=== PATIENT | female | born 1985 | race Caucasian/White ===

== ENCOUNTER 2017-08-22 10:49 | Emergency (ER) | payer MEDICAID, SELFPAY ==
[2017-08-22 10:51] VITALS: BP 112/75; PULSE 68; RESP 16; TEMP 36.3; O2SAT 98; BMI 29.6
[2017-08-22] MEDS: Ketorolac 30 MG/ML Syringe IV (11:10)
[2017-08-22] MEDS: proCHLORPERazine 10 MG/2 ML Vial IV (11:10)
[2017-08-22] MEDS: 0.9% Normal Saline 1,000 ML 999 ML IV (11:10)
[2017-08-22] MEDS: DiphenhydrAMINE 50 MG/ML Syringe 25 MG IV (11:10)
--- NOTE | 2017-08-22 12:13 | ED.VISSUMM ---
- ER Visit Summary Date of Service: 08/22/17 Chief Complaint: Headache History of Present Illness: The patient is a 32 F with a history of migraines who takes Maxalt as needed at home who presents with a headache since yesterday. She states it began about noon and worsened over several hours and reached its worst point about 3 AM today. She does have a history of prior similar headaches although today's is more severe. She currently rates it as a 9 out of 10. It is typical in character location and associated symptoms as her previous migraines. She complains of an aching right temporal and retro-orbital headache. She does report nausea vomiting and photophobia all of which is typical with her previous migraines. She has had some mild congestion recently but otherwise no recent illness. She denies fevers. She denies any history of head injury. Physical Examination: Afebrile vitals are normal Patient does appear uncomfortable lights are off in the room Moist mucous membranes Pupils are equally round and reactive to light Neck supple no meningismus No focal or lateralizing neurological deficits normal strength and sensation Heart regular Lungs clear Test Results: Not indicated Emergency Department Course and Treatment: Was treated with IV fluids Toradol Compazine and Benadryl with resolution of symptoms and feels much better on reevaluation. She understands to return for new or worsening symptoms. She will otherwise follow-up as needed as an outpatient with her neurologist. She was discharged. Treatment Plan: [] Disposition: Discharge Impression: Migraine This note was generated with [employer] dictation software. It may contain incorrect words, spelling, and punctuation that were not noted in review of the chart prior to signing ED Disposition - Plan for ED Patient: Chief Complaint: Headache Referrals: Care Physician,No Primary [Primary Care Provider] -
--- NOTE | 2017-08-22 12:16 | ED.DEP ---
ED Disposition - Plan for ED Patient: Chief Complaint: Headache Instructions: ED Headache Migraine Referrals: Care Physician,No Primary [Primary Care Provider] -
[2017-08-22 12:20] VITALS: BP 108/77; PULSE 62; RESP 15; O2SAT 98
== END 2017-08-22 12:21 | disposition home or self-care (01) ==
LOC: ED 11:50
PROVIDERS: Emergency Provider Emergency Medicine
DX: G43.909 Migraine, unspecified, not intractable, without status migrainosus (principal); I34.1 Nonrheumatic mitral (valve) prolapse; F41.9 Anxiety disorder, unspecified; Z79.899 Other long term (current) drug therapy
CPT/HCPCS: 96361; 96374; 96375; 99283; J7030; A4216

== ENCOUNTER 2018-07-11 19:38 | Emergency (ER) | payer MEDICAID, SELFPAY ==
[2018-07-11 19:39] VITALS: BP 107/65; PULSE 124; RESP 18; TEMP 36.5; O2SAT 97; BMI 31.5
--- NOTE | 2018-07-11 20:19 | ED.VISSUMM ---
- ER Visit Summary Date of Service: 07/11/18 Chief Complaint: Body aches and headache with sore throat History of Present Illness: The patient is a 33 F diagnosed with strep throat early this morning at [facility]. Started on amoxicillin twice daily. Has already started antibiotic. Denies any significant cough. States she also has a headache and the lymph nodes in her neck are swollen. She denies vomiting or diarrhea. No sneezing cough. She has had a fever. Physical Examination: Well-appearing young female. Vital signs are stable. Currently she is afebrile. Blood pressure 107/65. She does not look septic or toxic. She does not look dehydrated. H EENT exam TMs normal. Posterior pharynx erythema with small exudate. No peritonsillar abscess. Tonsils are slightly enlarged and red but not touching. No stridor or drooling. Able to swallow. Neck anterior and posterior lymphadenopathy is tender. No meningismus. She is able to touch her chin to chest. Lungs clear to auscultation bilaterally. Heart regular rhythm no murmur. Tachycardic. Abdomen soft and nontender. Normal bowel sounds no peritoneal signs. Extremities moves all 4. Calves nontender. No edema. Back nontender. Skin no rashes. No petechiae or purpura. Neurologically she is awake alert with no focal motor or sensory deficits. 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 Dorsi plantar flexion intact. Fingertip to nose within normal limits bilaterally. Test Results: None Emergency Department Course and Treatment: Motrin p.o. to go. Patient to start her antibiotic explained to her to take several days if she starts feeling better. Treatment Plan: Continue the amoxicillin. Tylenol Motrin for fever. Plenty of fluids and rest. Disposition: Discharge Impression: Acute strep throat with body aches, cervical lymphadenopathy and headache This note was generated with [employer] dictation software. It may contain incorrect words, spelling, and punctuation that were not noted in review of the chart prior to signing ED Disposition - Plan for ED Patient: Referrals: Care Physician,No Primary [Primary Care Provider] -
--- NOTE | 2018-07-11 20:22 | ED.DCSUM_ITS ---
- ER Visit Summary Date of Service: 07/11/18 Chief Complaint: Body aches and headache with sore throat History of Present Illness: The patient is a 33 F diagnosed with strep throat early this morning at [facility]. Started on amoxicillin twice daily. Has already started antibiotic. Denies any significant cough. States she also has a headache and the lymph nodes in her neck are swollen. She denies vomiting or diarrhea. No sneezing cough. She has had a fever. Physical Examination: Well-appearing young female. Vital signs are stable. Currently she is afebrile. Blood pressure 107/65. She does not look septic or toxic. She does not look dehydrated. H EENT exam TMs normal. Posterior pharynx erythema with small exudate. No peritonsillar abscess. Tonsils are slightly enlarged and red but not touching. No stridor or drooling. Able to swallow. Neck anterior and posterior lymphadenopathy is tender. No meningismus. She is able to touch her chin to chest. Lungs clear to auscultation bilaterally. Heart regular rhythm no murmur. Tachycardic. Abdomen soft and nontender. Normal bowel sounds no peritoneal signs. Extremities moves all 4. Calves nontender. No edema. Back nontender. Skin no rashes. No petechiae or purpura. Neurologically she is awake alert with no focal motor or sensory deficits. 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 Dorsi plantar flexion intact. Fingertip to nose within normal limits bilaterally. Test Results: None Emergency Department Course and Treatment: Motrin p.o. to go. Patient to start her antibiotic explained to her to take several days if she starts feeling better. Treatment Plan: Continue the amoxicillin. Tylenol Motrin for fever. Plenty of fluids and rest. Disposition: Discharge Impression: Acute strep throat with body aches, cervical lymphadenopathy and headache This note was generated with [employer] dictation software. It may contain incorrect words, spelling, and punctuation that were not noted in review of the chart prior to signing ED Disposition - Plan for ED Patient: Referrals: Care Physician,No Primary [Primary Care Provider] -
--- NOTE | 2018-07-11 20:22 | ED.DEP ---
ED Disposition - Plan for ED Patient: Disposition: Home or Assisted Living Instructions: ED Strep Pharyngitis Conf Referrals: Glen Jimenez MD [STAFF PHYSICIAN] - 3-5 Days if not improving Additional Instructions: Plenty of fluids and rest so you do not get dehydrated. Alternate Tylenol Motrin for body aches and fever. Continue your current antibiotic. Follow-up with a primary care physician if not improving.
[2018-07-11] MEDS: Ibuprofen 600 MG Tablet PO (20:36)
[2018-07-11 20:40] VITALS: RESP 16
== END 2018-07-11 20:41 | disposition home or self-care (01) ==
LOC: ED 20:30
PROVIDERS: Emergency Provider Emergency Medicine
DX: J02.0 Streptococcal pharyngitis (principal); R59.0 Localized enlarged lymph nodes; R51 Headache; M79.10 Myalgia, unspecified site; Z79.2 Long term (current) use of antibiotics; Z79.899 Other long term (current) drug therapy
CPT/HCPCS: 99283

== ENCOUNTER 2018-08-19 21:29 | Emergency (ER) | payer MEDICAID, SELFPAY ==
[2018-08-19 21:30] VITALS: BP 108/62; PULSE 102; RESP 18; TEMP 36.7; O2SAT 100; BMI 30.2
--- NOTE | 2018-08-19 21:43 | ED.VISSUMM ---
- ER Visit Summary Date of Service: 08/19/18 Chief Complaint: Dizziness History of Present Illness: The patient is a 33 F presents to the emergency department dizziness. The patient does have a history of vertigo. States of the past week, she had dizziness that she describes a sensation of motion. She states if she turns her head or leans quickly, she will get dizziness. She was on meclizine before, but has since run out. She is also had some pressure in her right ear. She denies any fevers or chills. She is been nauseated without vomiting. She denies any trouble speech, change in balance, change in gait. Physical Examination: Vital signs reviewed General: Well-nourished, well-developed Head: Normocephalic, atraumatic Eyes: Pupils equal and reactive, extraocular muscles intact Neck, supple, no lymphadenopathy Heart: Regular rate and rhythm Respiratory: No distress, clear bilaterally Abdomen: Soft, nontender, nondistended, no peritoneal signs Back: Nontender Extremities: Nontender, no edema, no cords Skin: Normal color no rash Neuro: Alert and oriented, no focal or lateralizing deficits Test Results: [] Emergency Department Course and Treatment: The patient does have some bulging of her right TM, but there is no erythema. There is no mastoid tenderness. Her neck is supple. She has no other brainstem symptoms. She does have a positive HI NTS exam. I do feel that this is all positional vertigo. I am going to treat her with meclizine and Zofran. She is comfortable with this plan of care and will be discharged home. Treatment Plan: [] Disposition: There is Impression: Urge 1. Positional vertigo This note was generated with [employer] dictation software. It may contain incorrect words, spelling, and punctuation that were not noted in review of the chart prior to signing ED Disposition - Plan for ED Patient: Instructions: ED BPV Vertigo Prescriptions: Ondansetron [Zofran Odt] 4 mg PO Q8H PRN PRN #10 tab PRN Reason: Nausea Meclizine HCl 25 mg PO 4X/DAY PRN PRN #30 tab PRN Reason: Vertigo Referrals: Care Physician,No Primary [Primary Care Provider] -
[2018-08-19] MEDS: Ondansetron ODT 4 MG Tablet PO (21:50)
[2018-08-19] MEDS: Meclizine HCl 25 MG Tablet PO (21:50)
[2018-08-19 21:54] VITALS: RESP 16
== END 2018-08-19 21:56 | disposition home or self-care (01) ==
LOC: ED 21:47
PROVIDERS: Emergency Provider Emergency Medicine
DX: H81.10 Benign paroxysmal vertigo, unspecified ear (principal)
CPT/HCPCS: 99283

== ENCOUNTER 2018-10-09 10:53 | Emergency (ER) | payer MEDICAID, SELFPAY ==
[2018-10-09 10:54] VITALS: BP 113/66; PULSE 95; RESP 16; TEMP 36.9; O2SAT 100; BMI 28.6
--- NOTE | 2018-10-09 11:12 | RAD_ITS ---
STUDY: X-RAY CHEST REASON FOR EXAM: Female, 33 years old. Fever TECHNIQUE: PA and lateral views of the chest. COMPARISON: 05/23/2015 FINDINGS: The lungs are clear and expanded. There is no demonstrated pleural abnormality. Normal size heart. Normal mediastinum and elvin. Normal visualized pulmonary arteries. Normal visualized aortic arch and descending thoracic aorta. Normal visualized thoracic spine. Normal visualized ribs, clavicles, and shoulders. There is no demonstrated abnormality of the visualized soft tissue structures of the upper abdomen. RAD/Chest PA and Lateral IMPRESSION: Stable, nonacute x-ray examination of the chest. Electronically Signed: Oscar Webb MD at 12:03 EDT , Service support ,
--- NOTE | 2018-10-09 11:24 | ED.VISSUMM ---
- ER Visit Summary Date of Service: 10/09/18 Chief Complaint: Headache, fever, and body ache History of Present Illness: The patient is a 33 F who presents with a headache and fever that began yesterday. Patient states her fever was up to 103.2 at home. Patient admits to some sweats with this. Patient also admits to a headache. Patient states the headache is similar to prior migraine headaches. Patient admits to some photophobia. Patient states her headache is also worse with moving. Patient states her headache improves when she lays flat and still. Patient describes her pain as throbbing and there is generalized. Patient also admits to some myalgias. Patient denies any chest pain or shortness of breath. Patient does admit to a slight cough. Physical Examination: Vital signs are stable. Patient is afebrile. Patient is in no acute distress. Oral mucosa is pink and moist. Neck is supple. Trachea is midline. There is no JVD noted. Heart was regular rate and rhythm. Lungs are clear and equal bilateral. Abdomen is soft. Bowel sounds are normal. There is no tenderness. There is no guarding noted. Skin is warm dry. Cranial nerves II through XII are intact. There are no focal motor or sensory deficits noted. The remaining physical exam is within normal limits. Test Results: PA and lateral chest x-ray was obtained. There is no acute cardiopulmonary process. CBC shows white blood cell count 2.5, hemoglobin of 11.1, and hematocrit 34.1. Sodium was 135. The remaining labs are within normal limits. Emergency Department Course and Treatment: Patient was given IV fluids, Reglan, Benadryl, and Toradol. Patient was feeling better on reevaluation. Patient states her headache has resolved. Patient was instructed to rest in a dark quiet room. Patient was instructed to follow-up with her primary care physician in 5 to 7 days. Patient understood and was agreeable with the plan. All questions were answered. Disposition: Discharge home Impression: 1. Migraine headache 2. Viral illness This note was generated with [employer]ation software. It may contain incorrect words, spelling, and punctuation that were not noted in review of the chart prior to signing ED Disposition - Plan for ED Patient: Disposition: Home or Assisted Living Diagnosis: Migraine headache, Viral illness Instructions: ED Headache Migraine, ED Viral Syndrome Referrals: Care Physician,No Primary [Primary Care Provider] -
[2018-10-09 11:27] LABS: Absolute Lymphocyte Count 0.86 X10^3/ul (0.83-4.51); Absolute Neutrophil Count 1.2 X10^3/uL (2.0-7.7); Basophil# 0.04 X10^3/uL; Basophil% 1.6 % (0-1); Eosinophil# 0.04 X10^3/uL; Eosinophils% 1.6 % (0-5); Hematocrit 34.1 % (37-47); Hemoglobin 11.1 g/dl (12.0-15.0); Lymphocyte # 0.86 X10^3/ul (4.0); Lymphocyte % 34.4 % (19-41); Mean Corp Hgb Conc 32.6 g/gl (32-36); Mean Corpuscular Hgb 23.3 pg (27.0-32.0); Mean Corpuscular Volume 71.6 fL (81-99); Mean Platelet Vol. 8.5 fl (6.2-12.0); Monocyte# 0.37 X10^3/uL; Monocyte% 14.8 % (0-10); Neutrophil # 1.18 X10^3/uL (2.7-7.7); Neutrophil % 47.2 % (47-70); Platelet Count 324 K/mm3 (150-450); RBC Distribution Width CV 15.2 % (11.6-14.6); Red Blood Count 4.76 M/mm3 (4.2-5.4); White Blood Count 2.5 K/mm3 (4.4-11.0)
[2018-10-09 11:28] LABS: POSITIVE COUNT NO; POSITIVE DIFFERENTIAL NO; POSITIVE MORPHOLOGY NO
[2018-10-09] MEDS: DiphenhydrAMINE 50 MG/ML Syringe 25 MG IV (11:29)
[2018-10-09] MEDS: proCHLORPERazine 10 MG/2 ML Vial IV (11:29)
[2018-10-09] MEDS: Ketorolac 30 MG/ML Syringe IV (11:29)
[2018-10-09] MEDS: 0.9% Normal Saline 1,000 ML 999 ML IV (11:30)
[2018-10-09 11:38] LABS: Anion Gap 5 (5-15); BUN 11 mg/dL (7-18); Calcium,Total 8.7 mg/dL (8.5-10.1); Chloride 105 mmol/L (98-107); Creatinine, Serum 0.92 mg/dL (0.55-1.02); EST Glomerular Filtration Rate 76 mL/min (>60); Est Glom Filt Rate - Afr Amer 92 mL/min (>60); Estimated Creatinine Clearance 86.16 ml/min; Glucose 89 mg/dL (74-106); Sodium Level 135 mmol/L (136-145)
[2018-10-09 12:55] VITALS: RESP 18
== END 2018-10-09 12:55 | disposition home or self-care (01) ==
PROVIDERS: Emergency Provider Emergency Medicine
DX: G43.909 Migraine, unspecified, not intractable, without status migrainosus (principal); B34.9 Viral infection, unspecified
CPT/HCPCS: 71046; 80048; 85025; 96361; 96374; 96375; 99283; J7030; A4216

== ENCOUNTER 2019-05-14 20:28 | Emergency (ER) | payer MEDICAID, SELFPAY ==
[2019-05-14 20:28] VITALS: BP 103/61; PULSE 114; RESP 18; TEMP 39.4; O2SAT 99; BMI 31.9
[2019-05-14 20:48] VITALS: BP 103/61; PULSE 114; RESP 16; RESP 18; TEMP 39.4; O2SAT 99
--- NOTE | 2019-05-14 20:54 | ED.DCSUM_ITS ---
History of Present Illness Chief Complaint: Cold Sx Detail of Chief Complaint: Cough, sore throat, congestion, fever Informant: Patient Onset: Yesterday Timing: Waxes and wanes Current Severity: Moderate Maximum Severity: Moderate Narrative: Patient states she woke early yesterday morning with congestion, fever, sore throat, cough. She is bringing up yellow sputum. Temperature here is 103. She last took ibuprofen 4 hours ago. She is a history of migraines and states that because of her cough she has now developed a migraine as well. She did not get the flu shot this year. - Past Medical History (1) Anxiety Status: Chronic (2) Mitral valve prolapse Status: Chronic (3) Palpitations Status: Chronic Past Medical History - Allergies and Home Meds Allergies/Adverse Reactions: Allergies pseudoephedrine Adverse Reaction (Verified 05/14/19 20:31) Other HIGH HEART RATE. BABY OIL Adverse Reaction (Uncoded 10/09/18 10:54) Rash Primary Care Physician: Eliot Smith NP-C [Primary Care Provider] - Prior records reviewed: Yes Lives: With Family Smoking Status: Never smoker Review of Systems General: Reports: Fever Eyes: Denies: Visual changes - bilaterally ENT: Reports: Sore throat, - - Head congestion Cardiovascular: Denies: Chest pain Respiratory: Reports: Cough, Sputum Gastrointestinal: Reports: Nausea. Denies: Vomiting Genitourinary: Denies: Dysuria Musculoskeletal: Denies: Neck pain, Extremity Pain Skin: Denies: Rash Neurological: Reports: Headache Allergy: Denies: Uticaria Physical Exam Vital Signs/Narrative: Vital Signs Temp Pulse Resp BP Pulse Ox 05/14/19 20:48 103 F H 114 H 18 103/61 99 05/14/19 20:28 103 F H 114 H 18 103/61 99 Inital Vital Signs reviewed: Yes General: Well nourished, Well developed Head: Normocephalic Eyes: Perrl, EOMI ENT: Moist mucous membranes, TM's clear, - - 2+ tonsils. Posterior pharyngeal drainage. Uvula midline. Patient tolerating secretions well. Neck: Supple, - - Bilateral anterior cervical lymphadenopathy. Cardiovascular: Tachycardia Respiratory: No distress, CTA bilaterally Abdomen: Soft, Nontender Extremities: Nontender, No edema Skin: Normal color Neurological: Alert, Oriented x3 Psychological: Normal affect Diagnostic/Tx/Re-eval Impressions Chest X-Ray 05/14/19 21:15 IMPRESSION: Normal x-ray examination of the chest. Electronically Signed: Elena Haddad MD at 22:00 EST Tel , Service support , 05/14/19 21:15 Chest PA and Lateral [RAD] Stat 05/14/19 21:30 Mucosa - Nasopharyngeal Influenza Types A,B Direct FA (KEN) - Final Influenzae B Laboratory Results 05/14/19 05/14/19 05/14/19 21:00 21:00 21:00 WBC 5.6 RBC 4.42 Hgb 11.3 L Hct 35.7 L MCV 80.8 L MCH 25.6 L MCHC 31.7 L RDW Std Deviation 42.0 RDW Coeff of Ana 14.2 Plt Count 334 MPV 8.1 Immature Gran % (Auto) 0.400 Neut % (Auto) 69.2 Lymph % (Auto) 18.2 L Mills % (Auto) 11.5 H Eos % (Auto) 0.2 Baso % (Auto) 0.5 Absolute Neuts (auto) 3.8 Absolute Lymphs (auto) 1.01 Nucleated RBC % 0 Sodium 138 Potassium 3.8 Chloride 107 Carbon Dioxide 26.0 Anion Gap 5 BUN 11 Creatinine 0.89 Estim Creat Clear Calc 85.74 Est GFR (MDRD) Af Amer 94 Est GFR (MDRD) Non-Af 78 BUN/Creatinine Ratio 12.3 Glucose 113 H Calcium 8.5 Serum , Qual NEGATIVE - Medical Decision Making Patient was given Toradol, Reglan, Benadryl, and IV fluids. On repeat evaluation she is feeling improved. She states her headache is improving but still present. I did advise her that her chest x-ray is clear however her flu test is positive for influenza B. Repeat temperature is currently 99.3. I did discuss the use of Tamiflu with her and gave her the pros and cons. She would like the medication. She will be given first dose here and prescription will be sent to the pharmacy for her. ED Disposition - Plan for ED Patient: Disposition: Home or Assisted Living Diagnosis: Influenza Instructions: INFLUENZA (Adult) Prescriptions: Oseltamivir Phosphate [Tamiflu] 75 mg PO BID #10 cap [facility]: [facility] Referrals: Eliot Smith, RICH-C [Primary Care Provider] - 1 Week
[2019-05-14] MEDS: 0.9% Normal Saline 1,000 ML 1000 ML IV (20:58)
[2019-05-14] MEDS: Acetaminophen 500 MG Tablet 1000 MG PO (20:58)
[2019-05-14] MEDS: Metoclopramide 10 MG/2 ML Vial IV (21:00)
[2019-05-14] MEDS: DiphenhydrAMINE 50 MG/ML Syringe 25 MG IV (21:00)
[2019-05-14] MEDS: Ketorolac 30 MG/ML Syringe IV (21:01)
[2019-05-14 21:06] LABS: Absolute Lymphocyte Count 1.01 X10^3/uL (0.83-4.51); Absolute Neutrophil Count 3.8 X10^3/uL (2.0-7.7); Basophil# 0.03 X10^3/uL; Basophil% 0.5 % (0-1); Eosinophil# 0.01 X10^3/uL; Eosinophils% 0.2 % (0-5); Hematocrit 35.7 % (37-47); Hemoglobin 11.3 g/dL (12.0-15.0); Lymphocyte # 1.01 X10^3/ul (4.0); Lymphocyte % 18.2 % (19-41); Mean Corp Hgb Conc 31.7 g/dL (32-36); Mean Corpuscular Hgb 25.6 pg (27.0-32.0); Mean Corpuscular Volume 80.8 fL (81-99); Mean Platelet Vol. 8.1 fl (6.2-12.0); Monocyte# 0.64 X10^3/uL; Monocyte% 11.5 % (0-10); NRBC Flagged by Analyzer 0 % (0-5); Neutrophil # 3.84 X10^3/uL (2.7-7.7); Neutrophil % 69.2 % (47-70); Platelet Count 334 K/mm3 (150-450); RBC Distribution Width CV 14.2 % (11.6-14.6); Red Blood Count 4.42 M/mm3 (4.2-5.4); White Blood Count 5.6 K/mm3 (4.4-11.0)
--- NOTE | 2019-05-14 21:15 | RAD_ITS ---
STUDY: X-RAY CHEST REASON FOR EXAM: Female, 33 years old. Cough with fever TECHNIQUE: PA and lateral chest. COMPARISON: 10/09/2018. FINDINGS: The lungs are clear and expanded. There is no demonstrated pleural abnormality. Normal size heart. Normal mediastinum and elvin. Normal visualized pulmonary arteries. Normal visualized aortic arch and descending thoracic aorta. Normal visualized thoracic spine. Normal visualized ribs, clavicles, and shoulders. There is no demonstrated abnormality of the visualized soft tissue structures of the upper abdomen. RAD/Chest PA and Lateral IMPRESSION: Normal x-ray examination of the chest. Electronically Signed: Elena Haddad MD at 22:00 EST Tel , Service support ,
[2019-05-14 21:20] LABS: Anion Gap 5 (5-15); BUN 11 mg/dL (7-18); BUN/Creat Ratio 12.3 RATIO (10-20); Calcium,Total 8.5 mg/dL (8.5-10.1); Chloride 107 mmol/L (98-107); Creatinine, Serum 0.89 mg/dL (0.55-1.02); EST Glomerular Filtration Rate 78 mL/min (>60); Est Glom Filt Rate - Afr Amer 94 mL/min (>60); Estimated Creatinine Clearance 85.74 ml/min; Glucose 113 mg/dL (74-106); Potassium 3.8 mmol/L (3.5-5.1); Sodium Level 138 mmol/L (136-145)
[2019-05-14 21:24] LABS: Internal QC Validated? YES +Cl - CLEAR BKGD; Pregnancy, Serum, hCG Quali. NEGATIVE Negative
[2019-05-14] MEDS: Oseltamivir Phosphate 75 MG Capsule PO (22:20)
== END 2019-05-14 22:25 | disposition home or self-care (01) ==
PROVIDERS: Emergency Provider Emergency Medicine; Family Provider Nurse Practitioner Primary Care; PCP Nurse Practitioner Primary Care
DX: J10.1 Influenza due to other identified influenza virus with other respiratory manifestations (principal); G43.909 Migraine, unspecified, not intractable, without status migrainosus; R00.2 Palpitations; I34.1 Nonrheumatic mitral (valve) prolapse; Z79.899 Other long term (current) drug therapy
CPT/HCPCS: 71046; 80048; 84703; 85025; 87804; 96361; 96374; 96375; 99284; J7030; A4216

== ENCOUNTER 2019-11-23 16:48 | Emergency (ER) | payer MEDICAID, SELFPAY ==
[2019-11-23 16:49] VITALS: BP 125/82; PULSE 93; RESP 22; TEMP 36.2; BMI 31.2
--- NOTE | 2019-11-23 17:08 | ED.DCSUM_ITS ---
History of Present Illness Chief Complaint: Headache Informant: Patient Onset: Today Current Severity: Severe Maximum Severity: Severe Narrative: Patient present secondary to headache. She is a history of migraines and states she gets her migraines nearly daily. Today she woke at 11:00 this morning with a headache. It is across both temples and behind her eyes. She states this is the typical location of her migraines but it is more severe than normal. She was seen at [facility]. She states she was given a shot of morphine and a tab of Valium thinking that she had a tension headache and discharged. She reported no improvement. She does follow with a neurologist as well as a chiropractor to try to keep her headaches under control. - Past Medical History (1) Migraines Status: Chronic (2) Anxiety Status: Chronic (3) Mitral valve prolapse Status: Chronic Past Medical History - Allergies and Home Meds Allergies/Adverse Reactions: Allergies pseudoephedrine Adverse Reaction (Verified 05/14/19 20:31) Other HIGH HEART RATE. BABY OIL Adverse Reaction (Uncoded 10/09/18 10:54) Rash Primary Care Physician: Eliot Smith NP-C [Primary Care Provider] - Prior records reviewed: Yes Smoking Status: Never smoker Review of Systems General: Denies: Chills Eyes: Reports: - - Light sensitivity. Denies: Visual changes - left, Visual changes - right ENT: Denies: Bilateral ear pain, Sore throat Cardiovascular: Denies: Chest pain Respiratory: Denies: Dyspnea, Cough Gastrointestinal: Reports: Nausea, Vomiting. Denies: Abdominal pain Musculoskeletal: Denies: Extremity Pain Skin: Denies: Rash Neurological: Reports: Headache. Denies: Weakness, Parasthesia Hematologic: Denies: Easy bruising, Easy bleeding Allergy: Denies: Uticaria Physical Exam Vital Signs/Narrative: Vital Signs Temp Pulse Resp BP 11/23/19 16:49 97.1 F L 93 22 H 125/82 H Inital Vital Signs reviewed: Yes General: Well nourished, Well developed Head: Normocephalic ENT: Moist mucous membranes Neck: Supple Cardiovascular: Regular rate, Regular rhythm Respiratory: No distress, CTA bilaterally Abdomen: Soft, Nontender Skin: Normal color Neurological: Alert, Oriented x3, - - No focal deficits Psychological: Normal affect Diagnostic/Tx/Re-eval Impressions Brain CT 11/23/19 17:08 IMPRESSION: Normal unenhanced CT scan of the brain. Electronically Signed: Elilot Rubin MD at 18:04 EDT , Service support , 11/23/19 17:08 Brain/Head without Contrast [CT] Stat - Medical Decision Making Patient was given Toradol, Reglan, Benadryl, and a liter of IV fluids. On rep eat evaluation she reports feeling significantly improved. She has an appointment with her neurologist in 10 days. She will be given prescriptions for tablets of Toradol, Reglan, and Benadryl that she can use if she gets a bad headache before then. She was encouraged to discuss this with her neurologist at follow-up. ED Disposition - Plan for ED Patient: Disposition: Home or Assisted Living Diagnosis: Migraine Instructions: ED, Migraine (Classical) Prescriptions: DiphenhydrAMINE [Benadryl] 50 mg PO TID PRN PRN #20 cap PRN Reason: Migraine Symptoms Transmission Status: Pending to [facility] Metoclopramide [Reglan] 10 mg PO TID PRN #20 tab PRN Reason: Migraine Symptoms Transmission Status: Pending to [facility] Ketorolac [Toradol] 10 mg PO TID PRN PRN #10 tab PRN Reason: Migraine Symptoms Transmission Status: Pending to [facility] Referrals: Eliot Smith NP-C [Primary Care Provider] - Additional Instructions: FOllow-up with your neurologist next week as scheduled.
--- NOTE | 2019-11-23 17:08 | CT_ITS ---
STUDY: CT BRAIN WITHOUT CONTRAST REASON FOR EXAM: Female, 34 years old. BELLAMY AND VOMITING. DIAGNOSED WITH TENSION BELLAMY TODAY RADIATION DOSAGE (If Supplied By Facility): CTDIvol = ( 44.99 ) mGy, DLP = ( 765.18 ) mGycm TECHNIQUE: Transaxial CT imaging of the brain was performed without administration of intravenous contrast material. Individualized dose optimization techniques were used for this CT. COMPARISON: No relevant priors. FINDINGS: Normal soft tissue structures. Normal calvarium. Normal size ventricles and extra-axial spaces for the patient''s age. Normal white matter tracts of the cerebral hemispheres. Normal basal ganglia and thalami. Normal brainstem. Normal cerebellum. There is no intracranial hemorrhage. There are no findings of an acute ischemic infarction. Normal visualized paranasal sinuses. CT/Brain/Head without Contrast IMPRESSION: Normal unenhanced CT scan of the brain. Electronically Signed: Elliot Rubin MD at 18:04 EDT , Service support ,
[2019-11-23] MEDS: Metoclopramide 10 MG/2 ML Vial IV (17:18)
[2019-11-23] MEDS: Ketorolac 30 MG/ML Syringe IV (17:18)
[2019-11-23] MEDS: 0.9% Normal Saline 1,000 ML 999 ML IV (17:18)
[2019-11-23] MEDS: DiphenhydrAMINE 50 MG/ML Syringe 25 MG IV (17:18)
[2019-11-23 18:57] VITALS: BP 124/78; PULSE 74; RESP 14; O2SAT 99
[2019-11-23 19:08] VITALS: BP 102/59; PULSE 77; RESP 15; O2SAT 100
== END 2019-11-23 19:09 | disposition home or self-care (01) ==
PROVIDERS: Emergency Provider Emergency Medicine; PCP Nurse Practitioner Primary Care
DX: G43.909 Migraine, unspecified, not intractable, without status migrainosus (principal); I34.1 Nonrheumatic mitral (valve) prolapse; F41.9 Anxiety disorder, unspecified; Z79.899 Other long term (current) drug therapy
CPT/HCPCS: 70450; 96361; 96374; 96375; 99283; J7030

== ENCOUNTER 2019-12-18 11:11 | Emergency (ER) | payer MEDICAID, SELFPAY ==
[2019-12-18 11:13] VITALS: BP 116/75; PULSE 98; RESP 17; TEMP 36.5; O2SAT 98; BMI 31.7
[2019-12-18] MEDS: proCHLORPERazine 10 MG/2 ML Vial IV (11:29)
[2019-12-18] MEDS: 0.9% Normal Saline 1,000 ML 999 ML IV (11:29)
[2019-12-18] MEDS: DiphenhydrAMINE 50 MG/ML Syringe IV (11:29)
[2019-12-18] MEDS: Ketorolac 30 MG/ML Syringe IV (11:29)
--- NOTE | 2019-12-18 11:32 | ED.DCSUM_ITS ---
History of Present Illness Informant: Patient Onset: Yesterday Context: Gradual Onset Timing: Continuous Quality: Sharp Location: Head Current Severity: Severe Maximum Severity: Severe Worsened by: Nothing Relieved by: Nothing Associated Symptoms: Photophobia and nausea Narrative: 34-year-old female history of migraine headaches presents with a migraine headache. It started last night. She is on Maxalt. This did not improve her headache. It is consistent with her previous migraine headaches. It is sharp pain in her forehead and her right jehovah's witness. It has gradually worsened. It is not the worst headache of her life. She has no neck pain. She does not feel l ightheaded or dizzy. She does complain of photophobia and nausea. No vomiting. No visual changes blurry or double vision. No loss of speech or difficulty with speech. No difficulty with ambulation. No fevers. No head trauma. Denies any weakness or paresthesias. Prior similar symptoms: Yes Recent Illness/Hospitalization: No <Jimmy Pineda - Last Filed: 12/18/19 12:17> <Isaac Bettencourt - Last Filed: 12/18/19 12:44> Chief Complaint: Headache Past Medical History Prior records reviewed: Yes Past Medical History: - - Migraine headaches Surgical History: no surgical history Lives: With Family Smoking Status: Never smoker Alcohol: Occasional Drugs: None <Jimmy Pineda - Last Filed: 12/18/19 12:17> <Isaac Bettencourt - Last Filed: 12/18/19 12:44> - Allergies and Home Meds Allergies/Adverse Reactions: Allergies pseudoephedrine Adverse Reaction (Verified 12/18/19 11:13) Other HIGH HEART RATE. BABY OIL Adverse Reaction (Uncoded 12/18/19 11:13) Rash Primary Care Physician: Eliot Smith NP-C [Primary Care Provider] - Review of Systems All systems negative except as indicated General: Denies: Chills, Fever, Sweats Eyes: Denies: Visual changes - bilaterally, Diplopia ENT: Denies: Rhinorrhea, Sore throat Cardiovascular: Denies: Chest pain, Palpitations Respiratory: Denies: Dyspnea, Cough, Dyspnea on exertion Gastrointestinal: Reports: Nausea. Denies: Abdominal pain, Vomiting, Diarrhea, Melena, Hematochezia Genitourinary: Denies: Dysuria, Hematuria, Frequency Musculoskeletal: Denies: Back pain, Extremity Pain Skin: Denies: Rash, Wounds Neurological: Reports: Headache. Denies: Weakness, Parasthesia, Numbness <Jimmy Pineda - Last Filed: 12/18/19 12:17> Physical Exam Vital Signs/Narrative: Vital Signs Temp Pulse Resp BP Pulse Ox 12/18/19 11:13 97.7 F L 98 17 116/75 98 Inital Vital Signs reviewed: Yes General: Well nourished, Well developed, No Acute Distress Head: Normocephalic, Atraumatic Eyes: Perrl, EOMI ENT: Moist mucous membranes, No rhinorrhea Neck: Supple, Nontender, - - There is no meningismus noted Cardiovascular: Regular rate, Regular rhythm, No murmurs Respiratory: No distress, CTA bilaterally, Chest nontender Abdomen: Soft, Nontender, Nondistended, Normal bowel sounds Back: Nontender, Normal Inspection Extremities: Nontender, No edema Skin: Normal color, No rash Neurological: Alert, Oriented x3, Cranial nerves II-XII grossly intact, Normal Strength, Normal Sensation, Normal Gait Psychological: Normal affect, Normal Mood <Jimmy Pineda - Last Filed: 12/18/19 12:17> Vital Signs/Narrative: Vital Signs Temp Pulse Resp BP Pulse Ox 12/18/19 12:33 87 115/72 12/18/19 11:13 97.7 F L 98 17 116/75 98 <Isaac Bettencourt - Last Filed: 12/18/19 12:44> Diagnostic/Tx/Re-eval - Medical Decision Making On exam patient had normal stable vital signs with a nonfocal neurological exam. Headache is consistent with previous migraines. She was given IV fluids, Toradol, Compazine and Benadryl. On repeat evaluation she feels much improved. She is tolerating by mouth. Patient will be discharged home. Advised to with her primary care physician. Return precautions given. <Jimmy Pineda - Last Filed: 12/18/19 12:17> - Medical Decision Making Attending Note: I evaluated this patient with the midlevel provider. I performed my own face to face evaluation and agree with the above noted history and physical. I agree with the plan of care and the disposition. Patient presented with a migraine headache. She has a reassuring physical exam as noted above. She had improvement with a headache cocktail and was discharged. <Isaac Bettencourt - Last Filed: 12/18/19 12:44> ED Disposition <Jimmy Pineda - Last Filed: 12/18/19 12:17> <Isaac Bettencourt - Last Filed: 12/18/19 12:44> - Plan for ED Patient: Disposition: Home or Assisted Living Diagnosis: Migraine headache Instructions: ED, Migraine (Classical) Referrals: Eliot Smith NP-C [Primary Care Provider] -
[2019-12-18 12:33] VITALS: BP 115/72; PULSE 87
== END 2019-12-18 12:34 | disposition home or self-care (01) ==
PROVIDERS: Emergency Provider Physician Assistant Medical; PCP Nurse Practitioner Primary Care
DX: G43.909 Migraine, unspecified, not intractable, without status migrainosus (principal)
CPT/HCPCS: 96361; 96374; 96375; 99283; J7030; A4216

== ENCOUNTER 2020-02-14 05:44 | Emergency (ER) | payer MEDICAID, SELFPAY ==
[2020-02-14 05:45] VITALS: BP 123/78; PULSE 74; RESP 16; TEMP 36.1; O2SAT 100; BMI 33.0
--- NOTE | 2020-02-14 05:50 | ED.DCSUM_ITS ---
- ER Visit Summary Date of Service: 02/14/20 Chief Complaint: Headache History of Present Illness: The patient is a 34 F presenting with headache. Patient states this started yesterday. Headache was gradual in onset. Feels similar to her previous migraine headaches. 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 She tried Excedrin and Tylenol at home without relief. She denies trauma. Denies fever. She complains of photophobia and nausea. Denies other complaints. Physical Examination: Vitals are stable. Patient is afebrile. Alert no acute distress. HEENT exam is unremarkable. Neck is supple. No meningismus Lungs are clear and equal bilaterally. Heart is regular rate and rhythm. Abdomen is soft nontender nondistended. Extremities are unremarkable. Skin is warm and dry. No focal neurologic deficit. Remainder of exam is unremarkable. Emergency Department Course and Treatment: Patient was given IV fluids, Toradol, Compazine, and Benadryl. On reevaluation, patient is feeling much improved. She is advised to follow-up with her neurologist. Advised return to ED for worsening complaints. Disposition: Discharge home Impression: Headache This note was generated with [employer] dictation software. It may contain incorrect words, spelling, and punctuation that were not noted in review of the chart prior to signing ED Disposition - Plan for ED Patient: Instructions: ED, Migraine (Classical) Referrals: Brody Guevara Jr [NON-STAFF] - Eliot Smith NP, CHAINSTITCH FELLED SEAM OPERATOR-C [Primary Care Provider] -
[2020-02-14] MEDS: DiphenhydrAMINE 50 MG/ML Syringe 25 MG IV (05:53)
[2020-02-14] MEDS: 0.9% Normal Saline 1,000 ML 999 ML IV (05:54)
[2020-02-14] MEDS: proCHLORPERazine 10 MG/2 ML Vial IV (05:55)
[2020-02-14] MEDS: Ketorolac 15 MG/ML Vial IV (05:55)
--- NOTE | 2020-02-14 06:25 | DCINST.ED_ITS ---
ED Disposition - Plan for ED Patient: Instructions: ED, Migraine (Classical) Referrals: Eliot Smith SUPERVISOR AREA, SUPERVISOR AREA-C [Primary Care Provider] - Brody Guevara Jr [NON-STAFF] -
--- NOTE | 2020-02-14 06:25 | ED.DEP ---
ED Disposition - Plan for ED Patient: Instructions: ED, Migraine (Classical) Referrals: Eliot Smith CHIEF DRAFTER, CHIEF DRAFTER-C [Primary Care Provider] - Brody Guevara Jr [NON-STAFF] -
== END 2020-02-14 06:37 | disposition home or self-care (01) ==
LOC: ED 06:29
PROVIDERS: Emergency Provider Emergency Medicine; PCP Nurse Practitioner Primary Care
DX: R51.9 Headache, unspecified (principal); Z79.899 Other long term (current) drug therapy
CPT/HCPCS: 96361; 96374; 96375; 99283; J7030; A4216

== ENCOUNTER 2021-03-12 10:52 | Emergency (ER) | payer MEDICAID, SELFPAY ==
[2021-03-12 10:53] VITALS: BP 125/76; PULSE 81; RESP 16; TEMP 36; O2SAT 98; BMI 32.3
--- NOTE | 2021-03-12 11:08 | RAD_ITS ---
STUDY: X-RAY - RIGHT HAND REASON FOR EXAM: Female, 35 years old. Pain and swelling following injury. TECHNIQUE: 4 view(s) of the hand. COMPARISON: None. FINDINGS: Normal radiocarpal articulation. Normal distal radioulnar joint. Normal visualized carpal bones. Normal carpal articulations Normal carpometacarpal articulation of the thumb. Normal second through fifth carpometacarpal joints. Normal metacarpi. Normal metacarpophalangeal joint of the thumb. Normal interphalangeal joint of the thumb. Normal proximal and distal phalanges of the thumb. Normal metacarpophalangeal joints of the second through fifth fingers. Normal proximal and distal interphalangeal joints of the second through fifth fingers. Questionable tiny avulsion at the base of the proximal phalanx of the index finger. Soft tissue swelling. RAD/Hand Min 3 Views IMPRESSION: Possible tiny avulsion at the base of the proximal phalanx of the index finger. Soft tissue swelling. Electronically Signed: Kuldip Schneider MD at 12:18 EDT , Service support ,
--- NOTE | 2021-03-12 11:08 | EDS_ITS ---
HPI History of Present Illness Chief Complaint: Upper Extremity Injury Detail of Chief Complaint: Injury to right hand Informant: patient Narrative Narrative: Patient presents to the emergency department complaint of an injury to the right hand that occurred 2 days ago. 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 Patient was kicked in the right hand and the hand had a metal fence post. Patient is right-hand dominant. Patient states that she is noticed increased pain and swelling and having a hard time moving the index finger. PFSH PFSH Medical History (Updated 03/12/21 @ 12:[address] Medhat Hunter, DO) Anxiety Atypical chest pain Dyspnea Mitral valve disorder Mitral valve prolapse Palpitations Home Medications nebivolol [Bystolic] 10 mg PO BID 08/22/17 [History Last Taken Unknown] gabapentin 300 mg PO TID 05/14/19 [History Last Taken Unknown] rizatriptan 20 mg PO BID 05/14/19 [History Last Taken Unknown] ferrous sulfate 325 mg PO DAILY 12/18/19 [History Last Taken Unknown] Allergy/AdvReac Type Severity Reaction Status Date / Time pseudoephedrine AdvReac Other Verified 03/12/21 10:55 BABY OIL AdvReac Rash Uncoded 03/12/21 10:55 Family History (Updated 06/19/17 @ 15:07 by Chetna Coley) Father , 60 Diabetes Myocardial infarction Mother COPD (chronic obstructive pulmonary disease) Grandfather Leukemia Social History (Updated 06/19/17 @ 15:07 by Chetna Coley) Smoking Status: Never smoker second hand exposure: No alcohol intake: never substance use type: does not use caffeine: Yes Type: coffee ROS ROS ED Constitutional Constitutional ED: Reports systems reviewed and no addt'l complaints, except as documented; Denies body ache(s), change in weight or chills Eyes Eyes: Denies acute decrease in peripheral vision, change in vision, double vision or loss of vision ENT ENT ED: Reports none; Denies ear pain, lip swelling, loss taste/smell, neck pain, otalgia or sore throat Cardiovascular Cardiovascular: Reports none; Denies abdominal pain, chest pain with activity, leg edema, lightheadedness, palpitations, rapid heart rate or syncope Respiratory/Chest Respiratory/Chest: Reports none; Denies change in mental status, dry cough, dyspnea, hemoptysis, shortness of breath at rest or shortness of breath with exertion Gastrointestinal Gastrointestinal: Reports none; Denies abdominal pain, change in stool character, diarrhea, hematemesis, hematochezia, melena, rectal bleeding or vomiting Genitourinary Genitourinary ED: Reports none; Denies abdominal discomfort, anuria, dysuria, genital pain or polyuria Musculoskeletal Musculoskeletal: Reports none and other Details: Right hand pain ; Denies arthralgias, back pain, difficulty walking, extremity pain, muscle weakness or myalgias Integumentary Reports none; Denies abscess or rash Neurologic Neurologic: Reports none; Denies abnormal gait, confusion, focal weakness, frequent falls, headache(s), loss of vision, numbness, paresthesias, radicular pain, vertigo or weakness Psychiatric Psychiatric: Reports systems reviewed and no addt'l complaints, except as documented and none; Denies behavioral changes, confusion, difficulty concentrating, hallucinations, suicidal ideation, tactile hallucinations or visual hallucinations Endocrine Endocrinology: Denies none, cold intolerance, excessive sweating, fatigue or he at intolerance Hematologic/Lymphatic Hematologic/Lymphatic: Reports none; Denies anemia, easy bleeding or easy bruising Allergic/Immunologic Allergic/Immunologic ED: Denies as per HPI, none, lip swelling, mouth swelling, throat swelling, tongue swelling or hives EXAM Physical Exam Const Vital Signs: 03/12/21 10:53 Temperature 96.8 F L Temperature Source Temporal Pulse Rate 81 Respiratory Rate 16 Blood Pressure 125/76 H Blood Pressure Mean 92 Pulse Ox 98 Oxygen Delivery Method Room Air Positive well nourished and well developed General Appearance ED: well developed and NAD HEENT Reports TM's clear and moist mucous membranes normocephalic and atraumatic; Negative for trauma or tenderness Tympanic Membrane ED: Yes TM's clear Eyes PERRL and EOMs intact bilaterally General Eye ED: Negative for pale conjunctiva or scleral icterus Neck no lymphadenopathy, supple and no JVD General: Negative for tenderness Chest Wall inspection of chest normal and palpation of chest normal Chest: Negative for tenderness Resp normal respiratory effort and clear to auscultation bilaterally Effort and Inspection: Negative for respiratory distress or pain with movement Auscultation: Negative for rhonchi, wheezes or diminished lung sounds Cardio regular rate, regular rhythm, S1 normal heart sound, S2 normal heart sound and no murmurs Peripheral Pulses: pulses 2+ throughout GI normal to inspection, nondistended, normoactive bowel sounds, soft to palpation, non-tender, non-distended and no masses Back/Spine no CVA tenderness and no thoracic nor lumbar tenderness Extremity Extremity Narrative: Evaluation of the right hand reveals tenderness to palpation over the second MCP joint with limited range of motion flexion extension of the index finger. No obvious deformity noted. There is no significant swelling or ecchymosis or bruising. Neurovascularly intact. General Extremety ED: Negative for edema General Extremity: Negative for edema Neuro oriented x3, CN's II-XII intact bilaterally, no sensory deficits noted and gait normal Sensorium / Orientation: awake, alert, oriented to person, oriented to place and oriented to time Motor Exam: strength 5/5 throughout and strength abnormal Psych mental status grossly normal Skin no rashes or lesions noted and no wounds MDM MDM MDM Narrative Medical decision making narrative: Patient will be placed in aluminum splint. She is to use ibuprofen or Tylenol for discomfort. Patient does not want to file this under Workmen's Comp. Radiography Diagnostic Testing: Three-view x-rays of right hand ordered interpreted by myself as questionable avulsion fracture at the base of the proximal phalanx of index finger. Radiology was in agreement. Discharge Plan Triage Chief Complaint: Upper Extremity Injury ED Provider: Medhat Hunter Dx/Rx/DC Orders Clinical Impression: Contusion of hand, right, Finger fracture Instructions: ED Hand Contusion, ED Fracture, Finger, Closed Prescriptions: No Action nebivolol [Bystolic] 2.5 MG tablet 10 mg PO BID RF: 0 rizatriptan 10 MG tablet 20 mg PO BID RF: 0 gabapentin 300 MG capsule 300 mg PO TID RF: 0 ferrous sulfate 325 MG tablet 325 mg PO DAILY RF: 0 Primary Care Provider: Eliot Smith NP Referrals: Eliot Smith R&D LAB TECHNICIAN, R&D LAB TECHNICIAN-C [Primary Care Provider] - Activity Restrictions/Additional Instructions: Follow-up with your orthopedic surgeon in 5 to 7 days. Disposition Disposition: Home, Self Care
== END 2021-03-12 12:43 | disposition home or self-care (01) ==
PROVIDERS: Emergency Provider Emergency Medicine; PCP Nurse Practitioner Primary Care
DX: S62.640A Nondisplaced fracture of proximal phalanx of right index finger, initial encounter for closed fracture (principal); F41.9 Anxiety disorder, unspecified; Z79.899 Other long term (current) drug therapy; W55.22XA Struck by cow, initial encounter; Y93.89 Activity, other specified; Y92.71 Barn as the place of occurrence of the external cause; Y99.0 Civilian activity done for income or pay
CPT/HCPCS: 73130; 99283

== ENCOUNTER 2021-06-18 22:51 | Emergency (ER) | payer MEDICAID, SELFPAY ==
[2021-06-18 22:52] VITALS: BP 107/59; PULSE 81; RESP 18; TEMP 36.2; O2SAT 100; BMI 33.6
--- NOTE | 2021-06-18 23:00 | RAD_ITS ---
STUDY: X-RAY - SACRUM/COCCYX REASON FOR EXAM: Female, 35 years old. Fell down stairs. Sacral pain radiating down left leg. TECHNIQUE: 3 view(s) of the sacrum and coccyx were obtained. COMPARISON: Lumbar spine, 06/18/2021. FINDINGS: Normal bilateral sacroiliac joints. Normal visualized sacral ala and fused sacral bodies. Normal sacrococcygeal junction with a normal angulation. Normal coccygeal segments. The presacral soft tissue structures are unremarkable. RAD/Sacrum-Coccyx min 2 Views IMPRESSION: Normal x-rays of the sacrum and coccyx. Electronically Signed: Ricco Simpson DO at 23:39 EST ,
--- NOTE | 2021-06-18 23:02 | ED.VIS.FALL ---
HPI HPI - Fall History of Present Illness Chief Complaint: Fall Informant: patient Occured/Mechanism Occurred: Days (3) Mechanism/Context: Yes slip Fall down steps #: 4 Usually ambulates: Without assistance Pain/Injury Location: left back/buttock, radiating down LLE to heel Quality of Pain: Aching Current Severity: Severe Maximum Severity: Severe Worsened by: walking, sitting Relieved by: remaining still Associated Symptoms Associated Symptoms: Negative for Parasthesias, Weakness, Loss of function, Inability to ambulate, Loss of consciousness and Amnesia Narrative Narrative: Patient slipped on icy outdoor steps 3 days ago, falling to her left buttock/back. She has been having pain there ever since, and after a day or 2 it started radiating down her left lower extremity to her foot. She denies any weakness or numbness. No saddle anesthesia, bowel or bladder dysfunction, or other injury. She has been ambulatory. [facility] Medical History Anxiety Atypical chest pain Dyspnea Mitral valve disorder Mitral valve prolapse Palpitations Home Medications nebivolol [Bystolic] 10 mg PO BID 08/22/17 [History Last Taken Unknown] gabapentin 300 mg PO TID 05/14/19 [History Last Taken Unknown] rizatriptan 20 mg PO BID 05/14/19 [History Last Taken Unknown] ferrous sulfate 325 mg PO DAILY 12/18/19 [History Last Taken Unknown] tramadol 50 mg PO Q4H PRN PRN 3 Days #15 tab 06/18/21 [Rx Last Taken Unknown] Allergy/AdvReac Type Severity Reaction Status Date / Time pseudoephedrine AdvReac Other Verified 03/12/21 10:55 BABY OIL AdvReac Rash Uncoded 03/12/21 10:55 Family History (Updated 06/19/17 @ 15:07 by Chetna Coley) Father , 60 Diabetes Myocardial infarction Mother COPD (chronic obstructive pulmonary disease) Grandfather Leukemia Social History Smoking Status: Never smoker second hand exposure: No alcohol intake: never substance use type: does not use caffeine: Yes Type: coffee ROS ROS ED Constitutional Constitutional ED: Denies chills or fever(s) Gastrointestinal Gastrointestinal: Denies abdominal pain, constipation, fecal incontinence, nausea or vomiting Genitourinary Genitourinary ED: Reports other Details: no urinary retention ; Denies abdominal discomfort or urinary incontinence Musculoskeletal Musculoskeletal: Reports as per HPI and back pain; Denies neck pain Integumentary Denies rash or wounds Neurologic Neurologic: Denies headache(s), paresthesias or weakness EXAM Physical Exam Const Vital Signs: 06/18/21 22:52 Temperature 97.1 F L Temperature Source Temporal Pulse Rate 81 Respiratory Rate 18 Blood Pressure 107/59 L Blood Pressure Mean 75 Pulse Ox 100 Oxygen Delivery Method Room Air Positive well nourished and well developed General Appearance ED: well developed and NAD HEENT Negative for trauma or tenderness Eyes PERRL and EOMs intact bilaterally Neck full ROM and supple GI normal to inspection, nondistended, normoactive bowel sounds, soft to palpation and non-tender Back/Spine normal to inspection Back/Spine Narrative: Tender mostly left side of sacrum, mildly into the lumbosacral midline, and throughout the left lateral buttock including sciatic notch. Pelvis stable to APC. No tenderness ischial tuberosity. Painless internal/external rotation of the hip joint without any groin pain. Lumbar Spine / Lower Back: ROM limited, pain with ROM and straight leg raise positive - left other (90 deg while sitting) Extremity normal to inspection, full ROM and no pedal edema Neuro oriented x3 and no sensory deficits noted Sensorium / Orientation: alert Motor Exam: strength 5/5 throughout and clonus absent Deep Tendon Reflexes: Rt Patellar (L4): 2+, Lt Patellar (L4): 2+, Rt Ankle (S1): 2+ and Lt Ankle (S1): 2+ Deep Tendon Reflexes Back: Rt Patellar (L4): 2+, Lt Patellar (L4): 2+, Rt Ankle (S1): 2+ and Lt Ankle (S1): 2+ Plantar Reflex: Downgoing: bilateral Psych mental status grossly normal and thought process normal Skin no rashes or lesions noted and no wounds MDM MDM MDM Narrative Medical decision making narrative: X-rays of the lumbosacral spine and the sacrum/coccyx were obtained, they are negative for any acute fracture. Patient is neurologically intact. Plan will be to prescribe her analgesics, recommend outpatient follow-up with the radicular symptoms do not resolve, as at that point she may require MRI. Discussed all this with her comfortable with the plan will follow up with her doctor. Radiography Diagnostic Testing: Clinical Impression(s) from Imaging Studies Sacrum and Coccyx X-Ray 06/18/21 23:00 IMPRESSION: Normal x-rays of the sacrum and coccyx. Electronically Signed: Ricco Simpson DO at 23:39 EST Reading Location ID and State: [address] [place] [address] Tel [phone], Service support , Lumbar Spine X-Ray 06/18/21 23:20 IMPRESSION: Normal x-ray examination of the lumbar spine. Electronically Signed: Ricco Simpson DO at 23:39 EST Reading Location ID and State: [address] [place] [address] Tel [phone], Service support , Discharge Plan Triage Chief Complaint: Fall ED Provider: Gus Linares Dx/Rx/DC Orders Clinical Impression: Contusion of lower back, Acute left-sided low back pain with sciatica, Fall from slipping on ice Instructions: ED Back Contusion, ED Sciatica Prescriptions: New tramadol 50 MG tablet 50 mg PO Q4H PRN PRN (Reason: Pain) 3 Days Qty: 15 RF: 0 No Action nebivolol [Bystolic] 2.5 MG tablet 10 mg PO BID RF: 0 rizatriptan 10 MG tablet 20 mg PO BID RF: 0 gabapentin 300 MG capsule 300 mg PO TID RF: 0 ferrous sulfate 325 MG tablet 325 mg PO DAILY RF: 0 Primary Care Provider: Eliot Smith NP Referrals: Eliot Smith NP, MARKETING AREA MANAGER-C [Primary Care Provider] - 1 Week if not improving Disposition Disposition: Home, Self Care
--- NOTE | 2021-06-18 23:20 | RAD_ITS ---
STUDY: X-RAY - LUMBAR SPINE REASON FOR EXAM: Female, 35 years old. Fell down stairs a few days ago. Left hip pain. Sacral pain shooting down the leg. TECHNIQUE: 3 view(s) of the lumbar spine were obtained. COMPARISON: None FINDINGS: Normal lumbar lordosis. There is no substantial scoliosis. There is a normal alignment of the vertebrae. Normal vertebral bodies and endplates. Normal disc space heights. There is no evidence of acute fracture or loss of vertebral axial height. The soft tissue structures are unremarkable. RAD/Lumbar Spine 2 or 3 Views IMPRESSION: Normal x-ray examination of the lumbar spine. Electronically Signed: Ricco Simpson DO at 23:39 EST ,
[2021-06-18] MEDS: Ketorolac 60 MG/2 ML Vial IM (23:49)
[2021-06-18] MEDS: traMADol 50 MG Tablet PO (23:49)
[2021-06-19] VITALS: PULSE 70; RESP 14
== END 2021-06-19 00:10 | disposition home or self-care (01) ==
PROVIDERS: Emergency Provider Emergency Medicine; PCP Nurse Practitioner Primary Care; Visit Provider Emergency Medicine
DX: S20.229A Contusion of unspecified back wall of thorax, initial encounter (principal); M79.672 Pain in left foot; W00.1XXA Fall from stairs and steps due to ice and snow, initial encounter; M54.42 Lumbago with sciatica, left side; Y93.9 Activity, unspecified; Y99.9 Unspecified external cause status; Y92.9 Unspecified place or not applicable
CPT/HCPCS: 72100; 72220; 96372; 99282

== ENCOUNTER 2021-07-09 18:46 | Emergency (ER) | payer MEDICAID, SELFPAY ==
[2021-07-09 18:47] VITALS: BP 126/77; PULSE 89; RESP 16; TEMP 36.7; O2SAT 97; BMI 34.0
--- NOTE | 2021-07-09 18:59 | EDS_ITS ---
HPI History of Present Illness Chief Complaint: Upper Extremity Injury Informant: patient Onset/Context/Timing Onset: Today Current Severity: Mild Maximum Severity: Moderate Narrative Narrative: Patient presents with pain to her right index finger. She reports breaking her hand the base of the index finger last fall. She did not have surgery but did have to have physical therapy. Today she was reaching for an open door when her daughter kicked the door closed and the other side. She has increased pain from her index finger MTP joint to her PIP joint. She is right- hand dominant. [facility] Medical History Anxiety Atypical chest pain Dyspnea Mitral valve disorder Mitral valve prolapse Palpitations Home Medications nebivolol [Bystolic] 10 mg PO BID 08/22/17 [History Last Taken Unknown] gabapentin 300 mg PO TID 05/14/19 [History Last Taken Unknown] rizatriptan 20 mg PO BID 05/14/19 [History Last Taken Unknown] ferrous sulfate 325 mg PO DAILY 12/18/19 [History Last Taken Unknown] tramadol 50 mg PO Q4H PRN PRN 3 Days #15 tab 06/18/21 [Rx Last Taken Unknown] Allergy/AdvReac Type Severity Reaction Status Date / Time pseudoephedrine AdvReac Other Verified 03/12/21 10:55 BABY OIL AdvReac Rash Uncoded 03/12/21 10:55 Family History Father , 60 Diabetes Myocardial infarction Mother COPD (chronic obstructive pulmonary disease) Grandfather Leukemia Social History Smoking Status: Never smoker second hand exposure: No alcohol intake: never substance use type: does not use caffeine: Yes Type: coffee ROS ROS ED Constitutional Constitutional ED: Denies chills or fever(s) Eyes Eyes: Denies change in vision ENT ENT ED: Denies sore throat Cardiovascular Cardiovascular: Denies chest pain Respiratory/Chest Respiratory/Chest: Denies cough or dyspnea Gastrointestinal Gastrointestinal: Denies abdominal pain, nausea or vomiting Musculoskeletal Musculoskeletal: Reports other Details: Right hand pain ; Denies back pain Integumentary Denies rash Neurologic Neurologic: Denies weakness Allergic/Immunologic Allergic/Immunologic ED: Denies urticaria EXAM Physical Exam Const Vital Signs: 07/09/21 18:47 Temperature 98.1 F Temperature Source Temporal Pulse Rate 89 Respiratory Rate 16 Blood Pressure 126/77 H Blood Pressure Mean 93 Pulse Ox 97 Oxygen Delivery Method Room Air Positive well nourished and well developed General Appearance ED: well developed HEENT normocephalic and atraumatic Eyes PERRL Neck supple Chest Wall inspection of chest normal and palpation of chest normal Resp normal respiratory effort and clear to auscultation bilaterally Cardio regular rate and regular rhythm GI non-tender Palpation: soft Extremity Extremity Narrative: Mild tenderness along the proximal phalanx of the right index finger. No obvious deformity. Good cap refill and sensation distally. Good range of motion. Neuro oriented x3 Sensorium / Orientation: alert Psych mental status grossly normal Skin Lesions: no lesions Rashes: no rashes MDM MDM MDM Narrative Medical decision making narrative: Right hand x-rays obtained. Patient given Naprosyn for pain. Treatment and Re-Evaluation Comments:: X-rays from interpretation reveal no acute fracture. Radiology interpretation is reviewed and agrees. Patient will continue supportive care at home including Tylenol or ibuprofen. She is to follow-up with her physician as she may need another course of physical therapy. Discharge Plan Triage Chief Complaint: Upper Extremity Injury ED Provider: Marivel Mcdermott Dx/Rx/DC Orders Clinical Impression: Contusion of hand, right Instructions: ED Hand Contusion Prescriptions: No Action nebivolol [Bystolic] 2.5 MG tablet 10 mg PO BID RF: 0 rizatriptan 10 MG tablet 20 mg PO BID RF: 0 gabapentin 300 MG capsule 300 mg PO TID RF: 0 ferrous sulfate 325 MG tablet 325 mg PO DAILY RF: 0 tramadol 50 MG tablet 50 mg PO Q4H PRN PRN (Reason: Pain) 3 Days Qty: 15 RF: 0 Primary Care Provider: Eliot Smith NP Referrals: Eliot Smith NP, [facility] [Primary Care Provider] - 1 Week if not improving Disposition Disposition: Home, Self Care
[2021-07-09] MEDS: Naproxen 500 MG Tablet PO (19:08)
--- NOTE | 2021-07-09 19:20 | RAD_ITS ---
STUDY: XR Hand Min 3 Views REASON FOR EXAM: Female, 36 years old. PAIN TECHNIQUE: XR Hand Min 3 Views COMPARISON: None. FINDINGS: Normal radiocarpal articulation. Normal distal radioulnar joint. Normal visualized carpal bones. Normal carpal articulations Normal carpometacarpal articulation of the thumb. Normal second through fifth carpometacarpal joints. Normal metacarpi. Normal metacarpophalangeal joint of the thumb. Normal interphalangeal joint of the thumb. Normal proximal and distal phalanges of the thumb. Normal metacarpophalangeal joints of the second through fifth fingers. Normal proximal and distal interphalangeal joints of the second through fifth fingers. Normal phalanges of the second through fifth fingers. The soft tissue structures are unremarkable. RAD/Hand Min 3 Views IMPRESSION: There are no acute findings. Electronically Signed: Andre Crawley MD at 19:47 EST ,
== END 2021-07-09 19:59 | disposition home or self-care (01) ==
PROVIDERS: Emergency Provider Emergency Medicine; PCP Nurse Practitioner Primary Care; Visit Provider Emergency Medicine
DX: S60.221A Contusion of right hand, initial encounter (principal); W22.8XXA Striking against or struck by other objects, initial encounter; Y93.9 Activity, unspecified; Y99.9 Unspecified external cause status; Y92.9 Unspecified place or not applicable; F41.9 Anxiety disorder, unspecified; Z79.899 Other long term (current) drug therapy
CPT/HCPCS: 73130; 99283

== ENCOUNTER 2021-08-08 12:29 | Emergency (ER) | payer MEDICAID, SELFPAY ==
[2021-08-08 12:31] VITALS: BP 110/77; PULSE 106; RESP 17; TEMP 35.6; O2SAT 100; BMI 35.0
--- NOTE | 2021-08-08 12:52 | EDS_ITS ---
HPI History of Present Illness Chief Complaint: Lower Extremity Injury Detail of Chief Complaint: Right knee pain without trauma. Second complaint laryngitis. Informant: patient Onset/Context/Timing Onset: Days Context: Gradual Onset Timing: Continuous Quality of Pain: Dull and Aching Current Severity: Mild Maximum Severity: Mild Associated Symptoms Associated Symptoms: Negative for Parasthesia, Weakness and Loss of Funtion Narrative Narrative: 36-year-old female history of bursitis of her right knee and mitral valve prolapse. She sees orthopedic physician Dr. Michael Rizo occasionally for her right knee. States on several days she is just had swelling. This has been an ongoing problem for 10 years. She denies any fever. No redness. She is able to walk. She denies any fever. No history of gout. Denies any other joint pain or swelling. Also she states she has had laryngitis for the last 2 weeks. She denies any fever. No trouble swallowing. She is a non-smoker. Prior similar symptoms: Yes Recent Illness/Hospitalization: No PFSH PFSH Medical History Anxiety Atypical chest pain Dyspnea Mitral valve disorder Mitral valve prolapse Palpitations Home Medications nebivolol [Bystolic] 10 mg PO BID 08/22/17 [History Last Taken Unknown] gabapentin 300 mg PO TID 05/14/19 [History Last Taken Unknown] rizatriptan 20 mg PO BID 05/14/19 [History Last Taken Unknown] ferrous sulfate 325 mg PO DAILY 12/18/19 [History Last Taken Unknown] tramadol 50 mg PO Q4H PRN PRN 3 Days #15 tab 06/18/21 [Rx Last Taken Unknown] Allergy/AdvReac Type Severity Reaction Status Date / Time pseudoephedrine AdvReac Other Verified 08/08/21 12:30 BABY OIL AdvReac Rash Uncoded 08/08/21 12:30 Family History Father , 60 Diabetes Myocardial infarction Mother COPD (chronic obstructive pulmonary disease) Grandfather Leukemia Social History Smoking Status: Never smoker second hand exposure: No alcohol intake: never substance use type: does not use caffeine: Yes Type: coffee ROS ROS ED ROS Narrative Laryngitis. Review of Systems ROS Unobtainable: Denies due to encephalopathy Constitutional Constitutional ED: Denies fever(s) Eyes Eyes: Denies change in vision ENT ENT ED: Denies ear pain Cardiovascular Cardiovascular: Denies chest pain Respiratory/Chest Respiratory/Chest: Denies cough or dyspnea Gastrointestinal Gastrointestinal: Denies abdominal pain, diarrhea, nausea or vomiting Genitourinary Genitourinary ED: Denies dysuria Musculoskeletal Musculoskeletal: Denies myalgias Integumentary Denies rash Neurologic Neurologic: Denies headache(s) Psychiatric Psychiatric: Denies depression Endocrine Endocrinology: Denies polyuria Hematologic/Lymphatic Hematologic/Lymphatic: Denies easy bruising Allergic/Immunologic Allergic/Immunologic ED: Denies urticaria EXAM Physical Exam Narrative Exam Narrative: 36-year-old female no acute distress. H EENT exam unremarkable. Posterior pharynx normal. Voice is minimally hoarse. There is no stridor. No trouble swallowing or breathing. No drooling. Moist extremities. Neck nontender. No lymphadenopathy. Lungs clear to auscultation bilaterally. Heart regular rhythm no murmur. Abdomen soft nontender. Moving all 4 extremities. Neurovascularly intact. Specifically right hip ankle and foot are nontender with full range of motion. Right knee has minimal swelling. No redness. No warmth. She has full flexion and extension of the right knee. ACL and PCL are intact. As are the MCL and LCL. There is no significant effusion. No bony deformity. Otherwise exam normal. Const Vital Signs: 08/08/21 12:31 Temperature 96.0 F L Temperature Source Temporal Pulse Rate 106 H Respiratory Rate 17 Blood Pressure 110/77 Blood Pressure Mean 88 Pulse Ox 100 Oxygen Delivery Method Room Air Positive well nourished, well developed and obese; Negative for cachectic, contractures or unkempt General Appearance ED: well developed and NAD; Negative for unkempt, cachectic or contractures Nutritional Appearance: obese; Negative for cachectic HEENT Reports moist mucous membranes normocephalic and atraumatic Eyes PERRL Neck full ROM and supple Thyroid: Negative for tender Chest Wall inspection of chest normal and palpation of chest normal Resp normal respiratory effort, no retractions and clear to auscultation bilaterally Auscultation: Negative for rales, rhonchi or wheezes Cardio regular rate, regular rhythm, S1 normal heart sound, S2 normal heart sound and no murmurs GI non-tender, non-distended and no masses Auscultation: normoactive bowel sounds Palpation: soft; Negative for tender or guarding Back/Spine no CVA tenderness General Back: Negative for CVA tenderness Cervical Spine: Negative for cervical spine tenderness Thoracic Spine / Upper Back: Negative for thoracic spinal tenderness Extremity normal to inspection and full ROM Extremity Narrative: Right knee minimally swollen. Full range of motion. Ligaments intact. No large effusion. No redness or warmth. General Extremety ED: Negative for cyanosis or edema General Extremity: Negative for cyanosis or edema Neuro oriented x3 and moves all extremities Sensorium / Orientation: alert, oriented to person, oriented to place and oriented to time; Negative for orientation impaired, confused, lethargic or stuporous Motor Exam: strength 5/5 throughout Psych mental status grossly normal Appearance: Negative for unkempt Mood & Affect: Negative for anxious Skin no wounds Lesions: no lesions Rashes: no rashes Trauma: Negative for abrasion, laceration or puncture MDM MDM MDM Narrative Medical decision making narrative: 36-year-old female right knee pain consistent with exacerbation of history of bursitis. She does not need any imaging at this time. There is no signs of infection. Ice, rest and anti-inflammatories. S econd complaint of laryngitis is most likely seasonal allergies. It could also be from a viral syndrome. Rest her voice. Discharge Plan Triage Chief Complaint: Lower Extremity Injury ED Provider: Jono Cueva Dx/Rx/DC Orders Clinical Impression: Bursitis of right knee, Laryngitis Instructions: ED Bursitis, ED Laryngitis Prescriptions: No Action nebivolol [Bystolic] 2.5 MG tablet 10 mg PO BID RF: 0 rizatriptan 10 MG tablet 20 mg PO BID RF: 0 gabapentin 300 MG capsule 300 mg PO TID RF: 0 ferrous sulfate 325 MG tablet 325 mg PO DAILY RF: 0 tramadol 50 MG tablet 50 mg PO Q4H PRN PRN (Reason: Pain) 3 Days Qty: 15 RF: 0 Primary Care Provider: Eliot Smith NP Referrals: Michael Rizo MD [STAFF PHYSICIAN] - 1 Week if not improving Eliot Smith NP, [facility] [Primary Care Provider] - Activity Restrictions/Additional Instructions: Ice and elevate right knee to decrease pain and swelling. Motrin for pain and swelling. Rest to also help decrease the pain and swelling. Your voice changes either from seasonal allergies and drainage or viral laryngitis. Either way it should improve. Rest your voice. Add honey to your fluids. Warm salt water gargling. Disposition Disposition: Home, Self Care
== END 2021-08-08 13:21 | disposition home or self-care (01) ==
PROVIDERS: Emergency Provider Emergency Medicine; PCP Nurse Practitioner Primary Care; Visit Provider Emergency Medicine
DX: M70.51 Other bursitis of knee, right knee (principal); J30.2 Other seasonal allergic rhinitis; J04.0 Acute laryngitis; F41.9 Anxiety disorder, unspecified; Z79.899 Other long term (current) drug therapy
CPT/HCPCS: 99283

== ENCOUNTER 2021-09-02 09:17 | Emergency (ER) | payer MEDICAID, SELFPAY ==
[2021-09-02 09:17] VITALS: BP 112/72; PULSE 92; RESP 17; TEMP 36.6; O2SAT 96; BMI 35.2
--- NOTE | 2021-09-02 09:29 | EX.ED.DYSGE1 ---
HPI History of Present Illness Chief Complaint: Headache Informant: patient Narrative Narrative: 36-year-old female presenting to the emergency department with a chief complaint of headache. Patient reports a history of migraines. She states that this began at 89 and is associated with nausea and vomiting. She describes it as bifrontal and around her periorbital and retro-orbital area. She states that there is nothing significantly different about this migraine as compared to priors except that she cannot stop vomiting. She has Maxalt at home for abortive therapy. She states that she did not have any today. Her last migraine was on and was relieved with her home medications. She denies any recent illnesses fevers rash etc. No recent insect bites. She denies any arm leg speech or balance issues. She does note light sensitivity. PFSH PFSH Medical History Anxiety Atypical chest pain Bursitis Dyspnea Mitral valve disorder Mitral valve prolapse Palpitations Home Medications nebivolol [Bystolic] 10 mg PO BID 08/22/17 [History Last Taken Unknown] gabapentin 300 mg PO TID 05/14/19 [History Last Taken Unknown] rizatriptan 20 mg PO BID 05/14/19 [History Last Taken Unknown] ferrous sulfate 325 mg PO DAILY 12/18/19 [History Last Taken Unknown] tramadol 50 mg PO Q4H PRN PRN 3 Days #15 tab 06/18/21 [Rx Last Taken Unknown] ondansetron 4 mg PO Q6H PRN PRN #20 tab 09/02/21 [Rx Last Taken Unknown] Allergy/AdvReac Type Severity Reaction Status Date / Time pseudoephedrine AdvReac Other Verified 09/02/21 09:17 BABY OIL AdvReac Rash Uncoded 09/02/21 09:17 Family History Father , 60 Diabetes Myocardial infarction Mother COPD (chronic obstructive pulmonary disease) Grandfather Leukemia Social History Smoking Status: Never smoker second hand exposure: No alcohol intake: never substance use type: does not use caffeine: Yes Type: coffee ROS ROS ED Constitutional Constitutional ED: Denies chills, fever(s) or weight loss Eyes Eyes: Reports other Details: Photophobia ; Denies change in vision or diplopia ENT ENT ED: Denies ear pain, rhinorrhea or sore throat Cardiovascular Cardiovascular: Denies chest pain, orthopnea, palpitations or racing heartbeat Respiratory/Chest Respiratory/Chest: Denies cough, dyspnea or orthopnea Gastrointestinal Gastrointestinal: Reports nausea and vomiting; Denies abdominal pain or diarrhea Genitourinary Genitourinary ED: Denies dysuria, hematuria or urinary frequency Musculoskeletal Musculoskeletal: Denies arthralgias or myalgias Integumentary Denies abscess or rash Neurologic Neurologic: Reports headache(s); Denies paresthesias or weakness Psychiatric Psychiatric: Denies anxiety, depression, suicidal ideation or suicidal thoughts Endocrine Endocrinology: Denies polydipsia, polyphagia or polyuria Allergic/Immunologic Allergic/Immunologic ED: Denies mouth swelling, tongue swelling or urticaria EXAM Physical Exam Const Vital Signs: 09/02/21 09:17 Temperature 97.8 F Temperature Source Temporal Pulse Rate 92 Respiratory Rate 17 Blood Pressure 112/72 Blood Pressure Mean 85 Pulse Ox 96 Oxygen Delivery Method Room Air Positive well nourished and well developed General Appearance ED: well developed HEENT Reports normocephalic, head/scalp atraumatic, TM's clear and moist mucous membranes Negative for trauma Tympanic Membrane ED: Yes TM's clear Eyes PERRL and EOMs intact bilaterally Eyes Narrative: Mild photophobia Neck no lymphadenopathy, supple and no JVD Neck Narrative: No meningeal signs Resp normal respiratory effort and clear to auscultation bilaterally Cardio regular rate, regular rhythm and no murmurs GI normal to inspection, nondistended, normoactive bowel sounds and non-tender Palpation: soft Back/Spine no CVA tenderness and normal ROM Extremity normal to inspection General Extremety ED: Negative for edema General Extremity: Negative for edema Neuro oriented x3, CN's II-XII intact bilaterally and no sensory deficits noted Sensorium / Orientation: alert Motor Exam: strength 5/5 throughout Psych mental status grossly normal Mood & Affect: Negative for depressed or tearful Skin no rashes or lesions noted and no wounds MDM MDM MDM Narrative Medical decision making narrative: She has comePatient received Compazine Toradol and Benadryl in association with IV fluids. Upon reassessment the patient is found to be symptomatically improved. No further vomiting. Headache is improved. Will be discharged home. I will write for some Zofran. Patient to follow-up with her doctors as scheduled return if worsening or concerns Discharge Plan Triage Chief Complaint: Headache ED Provider: Otis Hanna Dx/Rx/DC Orders Clinical Impression: Migraine headache Instructions: ED, Migraine (Classical) Prescriptions: New ondansetron [ondansetron] 4 MG tablet 4 mg PO Q6H PRN PRN (Reason: Nausea) Qty: 20 RF: 0 No Action nebivolol [Bystolic] 2.5 MG tablet 10 mg PO BID RF: 0 rizatriptan 10 MG tablet 20 mg PO BID RF: 0 gabapentin 300 MG capsule 300 mg PO TID RF: 0 ferrous sulfate 325 MG tablet 325 mg PO DAILY RF: 0 tramadol 50 MG tablet 50 mg PO Q4H PRN PRN (Reason: Pain) 3 Days Qty: 15 RF: 0 Primary Care Provider: Eliot Smith NP Referrals: Eliot Smith [facility]ACH[facility], [facility] [Primary Care Provider] - As Needed Disposition Disposition: Home, Self Care
[2021-09-02] MEDS: DiphenhydrAMINE 50 MG/ML Syringe IV (09:47)
[2021-09-02] MEDS: proCHLORPERazine 10 MG/2 ML Vial IV (09:47)
[2021-09-02] MEDS: Ketorolac 30 MG/ML Syringe IV (09:47)
[2021-09-02] MEDS: 0.9% Normal Saline 1,000 ML 999 ML IV (09:48)
[2021-09-02 11:02] VITALS: BP 106/64; PULSE 73; RESP 16; O2SAT 97
== END 2021-09-02 11:08 | disposition home or self-care (01) ==
PROVIDERS: Emergency Provider Emergency Medicine; PCP Nurse Practitioner Primary Care; Visit Provider Emergency Medicine
DX: G43.909 Migraine, unspecified, not intractable, without status migrainosus (principal); F41.9 Anxiety disorder, unspecified; Z79.899 Other long term (current) drug therapy
CPT/HCPCS: 96361; 96374; 96375; 99283; J7030

== ENCOUNTER 2022-01-18 11:59 | Emergency (ER) | payer MEDICAID, SELFPAY ==
[2022-01-18 12:00] VITALS: BP 132/74; PULSE 103; RESP 16; TEMP 36; O2SAT 99; BMI 35.5
[2022-01-18 12:02] VITALS: BP 132/74; PULSE 103; RESP 16; TEMP 36; O2SAT 99
--- NOTE | 2022-01-18 12:23 | CT_ITS ---
STUDY: CT ABDOMEN AND PELVIS WITH CONTRAST REASON FOR EXAM: Female, 36 years old. Postoperative pain --10 days post hernia repair. Nausea. IV PO Contrast RADIATION DOSAGE (If Supplied By Facility): CTDIvol = ( 15.75 ) mGy, DLP = ( 1172.06 ) mGycm TECHNIQUE: Transaxial images were obtained from the dome of the diaphragm to the symphysis pubis without oral contrast. Oral and amp; IV Gastrografin and amp; 100mL Isovue-370 was administered. Sagittal and coronal images were reconstructed. Individualized dose optimization techniques were used for this CT. COMPARISON: 05/23/2015 FINDINGS: The visualized lung bases are unremarkable. The visualized portions of the heart are within normal limits. Normal liver. Normal gallbladder and extrahepatic biliary system. There is a benign calcified granuloma of the spleen. There is mild splenomegaly. Normal pancreas. Normal bilateral adrenal glands. There is a too small to characterize low-attenuation focus within the right kidney which may reflect a cyst. Normal left kidney. There is mild circumferential wall thickening of the gastroesophageal junction. Normal visualized stomach. Normal small intestine. Normal colon. The appendix is visualized and appears normal. Normal abdominal aorta. Normal inferior vena cava. Normal retroperitoneum. Normal urinary bladder. There is a 3.4 x 3.6 x 3.5 cm cystic focus within the right adnexa. There is partial visualization of a low-attenuation subcutaneous nodule within the left lower back may reflect a sebaceous cyst. Normal osseous structures. CT/Abdomen/Pelvis WITH Contrast IMPRESSION: Indeterminate 3.4 x 3.6 x 3.5 cm right adnexal cystic focus, recommend pelvic ultrasound for further characterization, likely reflects an ovarian cyst. Mild circumferential wall thickening of the gastroesophageal junction may be secondary to underlying edema. Splenomegaly. Electronically Signed: Tanya Cabezas MD at 14:59 EDT ,
--- NOTE | 2022-01-18 12:24 | EX.ED.DYSGE1 ---
HPI History of Present Illness Chief Complaint: Abd Pain Informant: patient Narrative Narrative: Patient presents with abdominal pain. She just had surgery for hiatal hernia 10 days ago. This was done at [email or web address] in [place]. She states she was doing well until about 3 days ago. She developed a runny nose some sneezing and just a hint of a cough only because she has nasal drainage. She states she is not at all short of breath. No hemoptysis and no sputum production. Most of her issues have been sneezing. She thinks the sneezing hurt her. She had been doing well from surgery and not really having much pain. She had no acid reflux anymore. She denies any fevers or chills. No myalgias. She has had watery soft stools ever since surgery but she still on a liquid diet. She was basically healing for 7 days and now the last 3 days feels as though she is worsening again. She has not yet contacted the physician who did surgery. [facility] Medical History Anxiety Atypical chest pain Bursitis Dyspnea Mitral valve disorder Mitral valve prolapse Palpitations Home Medications nebivolol 2.5 mg tablet (Bystolic) 10 mg PO BID 08/22/17 [History Last Taken Unknown] rizatriptan 10 mg tablet 20 mg PO BID 05/14/19 [History Last Taken Unknown] ferrous sulfate 325 mg (65 mg iron) tablet 325 mg PO DAILY 12/18/19 [History Last Taken Unknown] ondansetron 4 mg disintegrating tablet 4 mg PO Q6H PRN PRN Nausea #20 tabs 09/02/21 [Rx Last Taken Unknown] esomeprazole magnesium 20 mg capsule,delayed release (Nexium) 20 mg PO DAILY #30 caps 01/18/22 [Rx Last Taken Unknown] Allergy/AdvReac Type Severity Reaction Status Date / Time pseudoephedrine AdvReac Other Verified 01/18/22 11:59 BABY OIL AdvReac Rash Uncoded 01/18/22 11:59 Family History Father , 60 Diabetes Myocardial infarction Mother COPD (chronic obstructive pulmonary disease) Grandfather Leukemia Social History Smoking Status: Never smoker second hand exposure: No alcohol intake: never substance use type: does not use caffeine: Yes Type: coffee ROS ROS ED Constitutional Constitutional ED: Denies chills, fever(s) or sweats Eyes Eyes: Denies blurry vision or change in vision ENT ENT ED: Reports rhinorrhea and other Details: Rhinorrhea and sneezing. ; Denies ear pain or sore throat Cardiovascular Cardiovascular: Denies chest pain Respiratory/Chest Respiratory/Chest: Denies dyspnea or sputum Gastrointestinal Gastrointestinal: Reports abdominal pain; Denies nausea or vomiting Genitourinary Genitourinary ED: Denies urinary frequency Musculoskeletal Musculoskeletal: Denies back pain or myalgias Integumentary Denies rash Neurologic Neurologic: Denies headache(s) Endocrine Endocrinology: Denies polydipsia or polyuria Hematologic/Lymphatic Hematologic/Lymphatic: Denies easy bleeding or easy bruising Allergic/Immunologic Allergic/Immunologic ED: Denies urticaria EXAM Physical Exam Const Vital Signs: 01/18/22 12:00 01/18/22 12:02 01/18/22 13:02 Temperature 96.8 F L 96.8 F L 96.8 F L Temperature Source Temporal Temporal Temporal Pulse Rate 103 H 103 H 100 Respiratory Rate 16 16 16 Blood Pressure 132/74 H 132/74 H 130/72 H Blood Pressure Mean 93 93 91 Pulse Ox 99 99 99 Oxygen Delivery Method Room Air Room Air Room Air 01/18/22 16:00 Temperature Temperature Source Pulse Rate 77 Respiratory Rate 16 Blood Pressure 122/83 H Blood Pressure Mean 96 Pulse Ox 99 Oxygen Delivery Method Room Air Positive well nourished Constitutional Narrative: No sinus tenderness. Throat is normal. General Appearance ED: NAD; Negative for pallor HEENT Reports moist mucous membranes Eyes PERRL General Eye ED: Negative for scleral icterus Neck no lymphadenopathy and supple Chest Wall inspection of chest normal Resp normal respiratory effort and clear to auscultation bilaterally Resp Narrative: No pain with a deep breath Auscultation: Negative for rales, rhonchi or wheezes Cardio regular rate, regular rhythm and no murmurs GI normal to inspection, nondistended, normoactive bowel sounds GI Narrative: Port sites all look like they are healing well. Abdomen is not distended. Bowel sounds are intact. There is some diffuse upper tenderness but no rebound or guarding. Back/Spine no CVA tenderness Extremity General Extremety ED: Negative for edema or tenderness General Extremity: Negative for edema Neuro Sensorium / Orientation: alert Psych mental status grossly normal Skin General Skin Exam: Negative for jaundice or pallor MDM MDM MDM Narrative Medical decision making narrative: Patient's electrolytes, liver function test, lipase and white count are all normal and COVID are negative. CT scan shows some GE junction edema. I called up to [place]. I discussed with Sumaya who is on-call for Dr. Rader. She contacted the doctor also. I had her images downloaded to [employer] system so they can be looked at. They are comfortable with discharge and follow-up on Thursday she already has a plan appointment. I will write for some Nexium exam wondering if she may be getting some gastritis symptoms. She used to be on meds but stopped them. Lab Data Labs: Laboratory Results - last 24 hr 01/18/22 01/18/22 01/18/22 12:30 12:30 12:30 WBC 6.7 RBC 5.07 Hgb 14.7 Hct 43.9 MCV 86.6 MCH 29.0 MCHC 33.5 RDW Std Deviation 40.5 RDW Coeff of Ana 13.1 Plt Count 462 H MPV 8.1 Immature Gran % (Auto) 0.400 Neut % (Auto) 56.2 Lymph % (Auto) 32.4 Grimes % (Auto) 5.6 Eos % (Auto) 4.5 Baso % (Auto) 0.9 Absolute Neuts (auto) 3.8 Absolute Lymphs (auto) 2.18 Nucleated RBC % 0 Sodium 139 Potassium 4.0 Chloride 107 Carbon Dioxide 26.0 Anion Gap 6 BUN 13 Creatinine 0.70 Estim Creat Clear Calc 106.01 Est GFR (MDRD) Af Amer 123 Est GFR (MDRD) Non-Af 102 BUN/Creatinine Ratio 18.7 Glucose 120 H Calcium 9.8 Total Bilirubin 0.30 AST 19 ALT 43 Alkaline Phosphatase 81 Total Protein 7.6 Albumin 3.5 Globulin 4.1 Albumin/Globulin Ratio 0.9 Lipase 138 Serum , Qual COVID-19 (BRENDA) Cancelled 01/18/22 01/18/22 12:30 12:30 WBC RBC Hgb Hct MCV MCH MCHC RDW Std Deviation RDW Coeff of Ana Plt Count MPV Immature Gran % (Auto) Neut % (Auto) Lymph % (Auto) Grimes % (Auto) Eos % (Auto) Baso % (Auto) Absolute Neuts (auto) Absolute Lymphs (auto) Nucleated RBC % Sodium Potassium Chloride Carbon Dioxide Anion Gap BUN Creatinine Estim Creat Clear Calc Est GFR (MDRD) Af Amer Est GFR (MDRD) Non-Af BUN/Creatinine Ratio Glucose Calcium Total Bilirubin AST ALT Alkaline Phosphatase Total Protein Albumin Globulin Albumin/Globulin Ratio Lipase Serum , Qual NEGATIVE COVID-19 (BRENDA) Not Detected Radiography Diagnostic Testing: Clinical Impression(s) from Imaging Studies Abdomen/Pelvis CT 01/18/22 12:23 IMPRESSION: Indeterminate 3.4 x 3.6 x 3.5 cm right adnexal cystic focus, recommend pelvic ultrasound for further characterization, likely reflects an ovarian cyst. Mild circumferential wall thickening of the gastroesophageal junction may be secondary to underlying edema. Splenomegaly. Electronically Signed: Tanya Cabezas MD at 14:59 EDT Reading Location ID and State: [facility] / [place] Tel , Service support , Discharge Plan Triage Chief Complaint: Abd Pain ED Provider: Wisam Noonan Dx/Rx/DC Orders Clinical Impression: Acute postoperative abdominal pain Instructions: ED Abdominal Pain Unkn Cause Fem Prescriptions: New esomeprazole magnesium [Nexium] 20 mg capsule,delayed release(DR/EC) 20 mg PO DAILY Qty: 30 0RF No Action nebivolol [Bystolic] 2.5 MG tablet 10 mg PO BID rizatriptan 10 MG tablet 20 mg PO BID ferrous sulfate 325 MG tablet 325 mg PO DAILY ondansetron [ondansetron] 4 MG tablet 4 mg PO Q6H PRN PRN (Reason: Nausea) Qty: 20 0RF Primary Care Provider: Eliot Smith NP Referrals: Eliot Smith [employer] MEMBER, [employer] COUNCIL MEMBER-C [Primary Care Provider] - Activity Restrictions/Additional Instructions: Follow-up with Dr. Rader as scheduled on Thursday. Disposition Disposition: Home, Self Care
[2022-01-18] MEDS: Ondansetron 4 MG/2 ML Vial IV (12:33)
[2022-01-18] MEDS: Morphine 4 MG/ML Syringe IV ×2 (12:33→15:39)
[2022-01-18] MEDS: 0.9% Normal Saline 1,000 ML 1000 ML IV (12:34)
[2022-01-18 12:44] LABS: Absolute Lymphocyte Count 2.18 X10^3/uL (0.83-4.51); Absolute Neutrophil Count 3.8 X10^3/uL (2.0-7.7); Basophil# 0.06 X10^3/uL; Basophil% 0.9 % (0-1); Eosinophils% 4.5 % (0-5); Hematocrit 43.9 % (37-47); Hemoglobin 14.7 g/dL (12.0-15.0); Lymphocyte # 2.18 X10^3/ul (0.83-4.51); Lymphocyte % 32.4 % (19-41); Mean Corp Hgb Conc 33.5 g/dL (32-36); Mean Corpuscular Volume 86.6 fL (81-99); Mean Platelet Vol. 8.1 fl (6.2-12.0); Monocyte# 0.38 X10^3/uL; Monocyte% 5.6 % (0-10); NRBC Flagged by Analyzer 0 % (0-5); Neutrophil # 3.78 X10^3/uL (2.7-7.7); Neutrophil % 56.2 % (47-70); Platelet Count 462 K/mm3 (150-450); RBC Distribution Width CV 13.1 % (11.6-14.6); RBC Distribution Width SD 40.5 fl (35.1-43.9); Red Blood Count 5.07 M/mm3 (4.2-5.4); White Blood Count 6.7 K/mm3 (4.4-11.0)
[2022-01-18 12:47] LABS: Internal QC Validated? YES +Cl - CLEAR BKGD; Pregnancy, Serum, hCG Quali. NEGATIVE Negative
[2022-01-18 12:54] LABS: ALB/GLOB Ratio 0.9 RATIO (0.9-2.4); AST(SGOT) 19 U/L (15-37); Alanine Aminotransfer ALT/SGPT 43 U/L (13-56); Albumin, Serum 3.5 g/dL (3.2-5.0); Alkaline Phosphatase 81 U/L (45-117); Anion Gap 6 (5-15); BUN 13 mg/dL (7-18); BUN/Creat Ratio 18.7 RATIO (10-20); Calcium,Total 9.8 mg/dL (8.5-10.1); Chloride 107 mmol/L (98-107); EST Glomerular Filtration Rate 102 mL/min (>60); Est Glom Filt Rate - Afr Amer 123 mL/min (>60); Estimated Creatinine Clearance 106.01 ml/min; Globulin 4.1 g/dL (2.2-4.2); Glucose 120 mg/dL (74-106); Lipase 138 U/L (73-393); Protein, Total 7.6 g/dL (6.4-8.2); Sodium Level 139 mmol/L (136-145)
[2022-01-18 13:02] VITALS: BP 130/72; PULSE 100; RESP 16; TEMP 36; O2SAT 99
[2022-01-18 16:00] VITALS: BP 122/83; PULSE 77; RESP 16; O2SAT 99
[2022-01-18 17:52] VITALS: BP 124/70; PULSE 74; RESP 16; O2SAT 99
== END 2022-01-18 17:53 | disposition home or self-care (01) ==
PROVIDERS: Emergency Provider Emergency Medicine; PCP Nurse Practitioner Primary Care; Visit Provider Emergency Medicine
DX: R10.9 Unspecified abdominal pain (principal); Z20.822 Contact with and (suspected) exposure to COVID-19; Z98.890 Other specified postprocedural states
CPT/HCPCS: 74177; 80053; 83690; 84703; 85025; 87635; 96361; 96374; 96375; 96376; 99283; J7030; Q9967; A4216; J2405; U0003; U0005

== ENCOUNTER → 2022-07-02 | Outpatient (CLI) | payer MEDICAID, SELFPAY ==
--- NOTE | 2022-07-02 12:58 | NEURO ---
NCS and/or EMG Patient Report Ordering Doctor: Elliot Maza DATE OF SERVICE: 07/02/22 Cricket presents for electrodiagnostic testing of the upper limbs. She reports numbness and tingling in both hands for approximately the last 6 months. She has a history of bilateral carpal tunnel release. Electrodiagnostic findings: On nerve conduction study, median motor nerve demonstrates normal distal latency, amplitude and conduction velocity bilaterally. Normal ulnar motor response bilaterally. Sensory responses are within normal limits median and ulnar F waves are normal. On needle EMG, all muscles tested in the upper limbs show no evidence of denervation with normal motor unit action potentials. Electrodiagnostic impression: This is a normal electrodiagnostic study of the upper limbs. There is no electrodiagnostic evidence for peripheral neuropathy including carpal tunnel or cubital tunnel syndrome. There is no electrodiagnostic evidence for cervical radiculopathy.
== END | disposition home or self-care (01) ==
LOC: PSN 09:56
PROVIDERS: PCP Nurse Practitioner Primary Care; Referring Provider Orthopaedic Surgery; Visit Provider Orthopaedic Surgery
DX: R20.2 Paresthesia of skin (principal); M47.22 Other spondylosis with radiculopathy, cervical region
CPT/HCPCS: 95886; 95913

== ENCOUNTER 2022-09-25 11:43 | Day surgery (SDC) | payer MEDICAID, SELFPAY ==
[2022-09-25 12:11] VITALS: BP 120/66; PULSE 74; RESP 18; TEMP 36.7; O2SAT 100; BMI 34.1
[2022-09-25] MEDS: Lactated Ringers 1,000 ML 15 ML IV (12:17)
--- NOTE | 2022-09-25 13:15 | RAD_ITS ---
XR Hand Min 3 Views INDICATION:37 years old female. THUMB MCP ULNAR REPAIR. TECHNIQUE: Fluoroscopic images are submitted from a procedure. Fluoro time: 4 seconds Images:4 images received Dose DAP: 0.09 mGy/m2 FINDINGS: Intraoperative fluoroscopic images of right hand. No radiologist was present for this procedure. Please see procedure note for further details. Electronically Signed: Tres Celis MD at 7:54 EDT , RAD/Hand Min 3 Views IMPRESSION: undefined
[2022-09-25] MEDS: Cefazolin 2 GM in 0.9% Normal Saline 100 ML IV (13:56)
[2022-09-25] MEDS: Bupivacaine Mpf 0.5% 30 ML VIAL (14:30)
[2022-09-25] MEDS: Lidocaine 1%/Epi 1:200 (30ml) 30 ML AMPUL (14:30)
--- NOTE | 2022-09-25 14:41 | OP.PCM_ITS ---
Report of Operation Date of Procedure: 09/25/22 Description of Surgical Findings:: Preoperative diagnosis: Right thumb metacarpophalangeal joint ulnar collateral ligament avulsion Postoperative diagnosis: Right thumb metacarpophalangeal joint ulnar collateral ligament avulsion Procedures: Right thumb metacarpophalangeal joint ulnar collateral ligament repair Surgeon: Dami Rubio DO Yard Cleaner: Marielena Parham PA-C Anesthesia: General endotracheal Vp Integrity: Everton Vilaltoro CRNA Complications: None Drains: None Estimated blood loss: 10 cc Urinary output: None measured IV fluids: 1 L crystalloid Specimens: None Surgical implants: Arthrex 4 mm x 10 mm Bio-Tenodesis screw Surgical indications: This is a 37-year-old female who [place] by an animal. She was seen in the outpatient setting for right thumb pain. MRI was eventually obtained demonstrated a distal avulsion of the ulnar collateral ligament at the MCP joint of the right thumb. She was immobilized in a splint, brace, and subsequently cast. After approximately 6 weeks she noted no improvement in pain. There is significant instability at the UCL with stress at 0 and 30 degrees of flexion. MRI did not demonstrate a Stener lesion. We discussed persistent pain and instability. I explained that she may have an opportunity to still heal the injury with immobilization versus proceeding with surgical fixation. She was to proceed with surgery. The risks, benefits, alternatives to the procedure reviewed with the patient at length and she agreed to proceed. Risk included but were not limited to bleeding, flexion, loss of life or limb, neurovascular injury, stiffness, loss of function of the thumb, DVT or PE, nonhealing wound or ligament. Patient expressed understanding these risks and wished proceed with surgery. Description of procedure: Patient was seen in preoperative holding area. She was identified by name, medical record number, date of . The operative extremity was marked with a surgical marker. We confirmed informed consent with the patient and all que stions were answered to his satisfaction. At time of her procedure, patient was brought to the operative suite and positioned supine a standard operating table. All bony prominences were well-padded. General anesthesia was induced and endotracheal tube placed. The right upper extremity was then prepped for surgery by first applying a well- padded pneumatic tourniquet to the right upper arm. The hand table attached to the right side of the table. We spun the bed 90 degrees. The right upper extremity was then prepped and draped in normal, sterile orthopedic fashion. 2 g Ancef was administered prior to incision by anesthesia staff. We performed a timeout at this point confirming side, site, and operation to be performed. No concerns voiced and elected to proceed. We first exsanguinated the right upper extremity with a an Esmarch bandage. Tourniquet was inflated to 250 mmHg were made up throughout the majority of the case. I then performed a field block with 20 cc total 1% lidocaine with epinephrine 1: 100,000 and bupivacaine 0.5% plain in a 50: 50 mixture. A lazy S incision was made through the skin and subcutaneous tissue along the ulnar aspect of the thumb MCP joint. I bluntly dissected through the subcutaneous plane. Neurovascular bundle was protected. The adductor aponeurosis was encountered. I split the aponeurosis along its dorsum and retracted it palmarly. The UCL was then encountered. Minimal healing was noted along its palmar most aspect at the proximal phalanx. Gross instability was noted on fluoroscopy prior to opening. I elected to proceed with takedown of the minimally healed UCL. I drilled for a unicortical Bio-Tenodesis screw with a 2-0 FiberWire passed through the eyelet. This achieved excellent cortical fixation. I then performed an inverted mattress repair of the UCL while my human resources assistant manager held the thumb in 30 degrees of MP flexion. I then copiously irrigated the wound with normal saline solution. We then deflated the tourniquet. Hemostasis was excellent. I closed the adductor aponeurosis in watertight fashion with an 3-0 Vicryl suture. Subcutaneous layers were reapproximated with 3-0 Vicryl in a running subcuticular Monocryl. Dermabond was used to finally reapproximate skin. Sterile compression dressing was applied. A well-padded thumb spica fiberglass splint was then applied. Patient tolerated procedure well without apparent complication. She was subsequently extubated and transferred to PACU in stable condition. Need for skilled human resources assistant manager: Marielena Parham PA-C was critical to the outcome of the case. During the course of the procedure the physician human resources assistant manager played a vital role. Her intimate knowledge of my steps in the procedure aided in safe and expedient completion of the procedure. The PA played a vital role in positioning particularly in obtaining the appropriate positioning. The PA was also vital in the retraction of soft tissues during the exposure and protecting vital structures. The PA was also vital and obtaining ligament reduction and assisting with hardware placement. She also played a vital role in closure and splint application with my direct supervision. Post Operative Plan: Weightbearing: Nonweightbearing operative extremity Antibiotics: Ancef 2 g x 1 dose preoperatively DVT Prophylaxis: 81 mg aspirin twice daily starting postoperative day #1 continue for x2 weeks Rosa: None Dressing: Maintain splint, keep it clean dry and intact until follow-up X-Rays: None indicated Pain Medication: Oxycodone Rx upon discharge Follow-up: 2 weeks post-operatively with me in the office
--- NOTE | 2022-09-25 14:41 | DCINST_ITS ---
Discharge Instructions Follow Up Care Test Results: Test results from this visit will be discussed in further detail at your follow- up appointment, if applicable. Discharge Plan Admission Primary Reason for Your Visit: Right thumb ligament repair Attending Provider: Dami Rubio Primary Care Provider: Eliot Smith NP Instructions Additional Instructions / Restrictions: Follow preprinted instructions from your surgeons office Discharge Orders/Prescriptions Prescriptions: New oxycodone 5 mg Tablet 5 mg PO Q6H PRN PRN (Reason: Pain Score 6-10) 5 Days Qty: 20 0RF No Action rizatriptan 10 MG tablet 20 mg PO BID Referrals / Follow Up: Dami Rubio DO [Med Staff - Active Staff] - Within 2 Weeks Eliot Smith NP, FURNACE AND WASH EQUIPMENT OPERATOR-C [Primary Care Provider] - Disposition Disposition (needs filled in before D/C Order can be placed): Home, Self Care
[2022-09-25 15:03] VITALS: BP 120/66; BP 120/70; PULSE 100; RESP 18; TEMP 36.3; O2SAT 98
[2022-09-25 15:15] VITALS: BP 112/67; BP 120/66; PULSE 89; RESP 16; O2SAT 100
[2022-09-25 15:25] VITALS: BP 116/61; BP 120/66; PULSE 83; RESP 18; TEMP 36.2; O2SAT 100
[2022-09-25 16:34] VITALS: BP 113/72; BP 120/66; PULSE 72; RESP 16; TEMP 36.8; O2SAT 98
== END 2022-09-25 16:38 | disposition home or self-care (01) ==
LOC: SDC 11:43 → AC 11:45
PROVIDERS: PCP Nurse Practitioner Primary Care; Referring Provider Student in an Organized Health Care Education/Training Program; Visit Provider Student in an Organized Health Care Education/Training Program
PROC: (CPT 25447; principal; 2022-09-25 13:00)
DX: S63.114A Dislocation of metacarpophalangeal joint of right thumb, initial encounter (principal); I10 Essential (primary) hypertension; X58.XXXA Exposure to other specified factors, initial encounter
CPT/HCPCS: 26540; 01810; 73130; 76000; C1713; J7120; J2405

== ENCOUNTER 2023-10-31 23:38 | Emergency (ER) | payer MEDICAID, SELFPAY ==
[2023-10-31 23:39] VITALS: BP 108/66; PULSE 112; RESP 18; TEMP 36.7; O2SAT 92; BMI 30.4
[2023-10-31 23:42] VITALS: PULSE 112; O2SAT 92
--- NOTE | 2023-11-01 00:30 | RAD_ITS ---
INDICATION: cough EXAMINATION/TECHNIQUE: X-RAY - XR Chest 2 Views COMPARISON: 05/14/2019 FINDINGS: LINES/DEVICES: None. LUNGS: Patchy infiltrate in the right middle lobe.. No pneumothorax. MEDIASTINUM: Unremarkable. CARDIAC SILHOUETTE: Not enlarged. BONES AND SOFT TISSUES: No acute abnormalities. RAD/Chest PA and Lateral IMPRESSION: Right middle lobe pneumonia. Electronically Signed: Roxanne Franco MD at 1:33 EDT ,
[2023-11-01 01:25] VITALS: BP 103/61; PULSE 82; RESP 16; TEMP 36.9; O2SAT 98
--- NOTE | 2023-11-01 02:08 | EX.ED.DYSGE1 ---
HPI History of Present Illness Chief Complaint: Cold Sx Informant: patient and family Narrative Narrative: Patient is a 38-year-old female with past medical history of mitral valve prolapse and migraines. She denies any history of lung disorders such as asthma or COPD and she denies smoking or vaping. She reports she has had 1 to 2 days of congestion cough and fatigue. She reports her son has recent been diagnosed with walking pneumonia. Secondary to symptoms and this exposure she is concerned she may have developed pneumonia as well and therefore comes in for evaluation [facility] Medical History (Updated 11/01/23 @ 22:[address] Ruddy Momin, DO) Wears glasses Sarcoma of back Anemia Easy bruising History of hiatal hernia History of IBS Heartburn Non-smoker History of echocardiogram History of stress test Cardiology follow-up encounter Bursitis Anxiety Atypical chest pain Mitral valve disorder Mitral valve prolapse Palpitations Dyspnea Home Medications ?Medication ?Instructions ?Recorded ?Last Taken ?Type benzonatate 200 mg capsule 200 mg PO TID PRN cough #30 caps 11/01/23 Unknown Rx doxycycline hyclate 100 mg capsule 100 mg PO BID 10 days #20 caps 11/01/23 Unknown Rx topiramate 25 mg tablet 50 mg PO DAILY 11/01/23 Unknown History Allergy/AdvReac Type Severity Reaction Status Date / Time Environmental Allergies: Allergy Intermediate Rash Verified 12/25/22 13:59 Uncoded pseudoephedrine AdvReac Other Verified 09/18/22 09:11 silicone AdvReac Hives Verified 09/18/22 09:12 Family History Father , 60 Diabetes Myocardial infarction Mother COPD (chronic obstructive pulmonary disease) Grandfather Leukemia Social History Smoking Status: Never smoker second hand exposure: No alcohol intake: never substance use type: does not use caffeine: Yes Type: coffee ROS ROS ED Constitutional Constitutional ED: Denies chills or fever(s) ENT ENT ED: Reports rhinorrhea and sore throat Cardiovascular Cardiovascular: Denies chest pain Respiratory/Chest Respiratory/Chest: Reports cough and dyspnea Gastrointestinal Gastrointestinal: Denies abdominal pain, diarrhea, nausea or vomiting Genitourinary Genitourinary ED: Denies dysuria Musculoskeletal Musculoskeletal: Reports myalgias Integumentary Denies rash Neurologic Neurologic: Denies headache(s) Hematologic/Lymphatic Hematologic/Lymphatic: Denies easy bleeding or easy bruising EXAM Physical Exam Const Vital Signs: 10/31/23 23:39 10/31/23 23:42 10/31/23 23:43 Temperature 98.1 F Temperature Source Oral Pulse Rate 112 H 112 H Respiratory Rate 18 Respiratory Pattern Normal Blood Pressure 108/66 Blood Pressure Mean 80 Pulse Ox 92 92 Oxygen Delivery Method Room Air Room Air 11/01/23 01:25 11/01/23 02:21 Temperature 98.4 F 98.1 F Temperature Source Oral Pulse Rate 82 78 Respiratory Rate 16 16 Respiratory Pattern Blood Pressure 103/61 115/58 L Blood Pressure Mean 75 77 Pulse Ox 98 95 Oxygen Delivery Method Room Air Positive well nourished and well developed General Appearance ED: well developed; Negative for pallor HEENT HEENT Narrative: Nasal mucosa is hyperemic and boggy Cobblestoning is noted in posterior pharynx consistent with sinus drainage without airway edema or compromise Bilateral TMs are retracted but show no secondary changes to suggest infection Eyes PERRL and EOMs intact bilaterally General Eye ED: Negative for scleral icterus Neck supple and no JVD Chest Wall palpation of chest normal Chest Narrative: No bony deformity or crepitance Resp normal respiratory effort Resp Narrative: Breath sounds are slight diminished throughout with faint rhonchi in the bilateral bases but no nasal flaring retractions tachypnea or accessory muscle use Cardio regular rate and regular rhythm Extremity normal to inspection Extremity Narrative: No asymmetric edema no pitting edema negative Homans' sign bilaterally Neuro oriented x3, CN's II-XII intact bilaterally and no sensory deficits noted Sensorium / Orientation: alert Motor Exam: strength 5/5 throughout Psych mental status grossly normal Skin no rashes or lesions noted and no wounds General Skin Exam: Negative for jaundice or pallor MDM MDM MDM Narrative Medical decision making narrative: Patient arrived to the ER with stable vitals and in no acute respiratory distress. She reports a known sick contact at home and has congestion and cough and therefore differential is for upper respiratory tract infection secondary to COVID versus influenza versus RSV versus potential pneumonia. Secondary to this a viral swab was obtained and chest x-ray. As she does not have signs of respiratory distress or vital sign changes concerning for septicemia I do not feel there is need for blood work. Viral swab was negative and chest x-ray showed changes consistent with pneumonia. At this time the patient is not hypoxic or in respiratory distress and vitals are stable so there is no need for admission and she will be started on antibiotics and is otherwise safe for discharge History & Record Review Discussion w/independent historian: Patient and Family Radiography Diagnostic Testing: Clinical Impression(s) from Imaging Studies Chest X-Ray 11/01/23 00:30 IMPRESSION: Right middle lobe pneumonia. Electronically Signed: Roxanne Franco MD at 1:33 EDT , Chest x-ray as interpreted by the emergency medicine physician reveals hazy opacity in the right lower lobe consistent with pneumonia Discharge Plan Triage Chief Complaint: Cold Sx ED Provider: Ruddy Momin Dx/Rx/DC Orders Clinical Impression: Right middle lobe pneumonia, Migraines, Mitral valve prolapse Instructions: ED Pneumonia (Adult) Prescriptions: New doxycycline hyclate 100 mg capsule 100 mg PO BID 10 Days Qty: 20 0RF benzonatate 200 mg capsule 200 mg PO TID PRN (Reason: cough) Qty: 30 0RF No Action topiramate 25 mg tablet 50 mg PO DAILY Primary Care Provider: Eliot Smith NP Referrals: Eliot Smith NP, PLATING EQUIPMENT TENDER-C [Primary Care Provider] - Activity Restrictions/Additional Instructions: Please follow-up with your family doctor for repeat evaluation and return to the ER should you have any further concerns or worsening of symptoms despite treatment Print Language: Finnish Disposition Disposition: Home, Self Care Discharge Date/Time: 11/01/23 02:24
[2023-11-01] MEDS: Doxycycline 100 MG CAPSULE PO (02:20)
[2023-11-01] MEDS: Benzonatate 100 MG Capsule 200 MG PO (02:20)
[2023-11-01 02:21] VITALS: BP 115/58; PULSE 78; RESP 16; TEMP 36.7; O2SAT 95
== END 2023-11-01 02:24 | disposition home or self-care (01) ==
PROVIDERS: Emergency Provider Emergency Medicine; PCP Nurse Practitioner Primary Care; Visit Provider Emergency Medicine
DX: J18.9 Pneumonia, unspecified organism (principal); I34.1 Nonrheumatic mitral (valve) prolapse; G43.909 Migraine, unspecified, not intractable, without status migrainosus; Z79.899 Other long term (current) drug therapy
CPT/HCPCS: 71046; 87811; 99283

== ENCOUNTER 2024-05-09 23:32 | Emergency (ER) | payer MEDICAID, SELFPAY ==
[2024-05-09 23:33] VITALS: BP 129/68; PULSE 98; RESP 16; TEMP 36.9; O2SAT 99; BMI 33.3
--- NOTE | 2024-05-09 23:50 | RAD_ITS ---
EXAM: XR RIGHT ELBOW COMPLETE, 3 OR MORE VIEWS CLINICAL INDICATION: TRAUMA TECHNIQUE: Frontal, lateral and oblique views of the right elbow. COMPARISON: No relevant prior studies available. FINDINGS: BONES/JOINTS: Unremarkable. There is no displacement of the anterior or posterior fat pads. No acute fracture. No subluxation. Normal alignment. Preservation of the joint space. No destructive or sclerotic lesions. SOFT TISSUES: Soft tissue swelling involving the subcutaneous tissues posterior to the triceps tendon. RAD/Elbow min 3 Views IMPRESSION: 1. Soft tissue swelling involving the subcutaneous tissues posterior to the triceps tendon. 2. No fracture. Electronically Signed: Isaac Cheng MD at 0:32 EST ,
--- NOTE | 2024-05-10 00:15 | EDS_ITS ---
HPI History of Present Illness Chief Complaint: Upper Extremity Injury Narrative Narrative: Patient is a 38-year-old female with a past medical history of IBS, bursitis in her right elbow follows with Dr. Rizo who presents to the emergency department chief complaint of right forearm pain after being kicked by a cow. 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 She states that she is had severe pain prompting her to co me here for the valuation management. She states that she wants to ensure that nothing is broken. PFSH PFSH Medical History Wears glasses Sarcoma of back Anemia Easy bruising History of hiatal hernia History of IBS Heartburn Non-smoker History of echocardiogram History of stress test Cardiology follow-up encounter Bursitis Anxiety Atypical chest pain Mitral valve disorder Mitral valve prolapse Palpitations Dyspnea Home Medications ?Medication ?Instructions ?Recorded ?Last Taken ?Type benzonatate 200 mg capsule 200 mg PO TID PRN cough #30 caps 11/01/23 Unknown Rx doxycycline hyclate 100 mg capsule 100 mg PO BID 10 days #20 caps 11/01/23 Unknown Rx topiramate 25 mg tablet 50 mg PO DAILY 11/01/23 Unknown History ondansetron 4 mg disintegrating 4 mg PO Q6H PRN nausea and 05/10/24 Unknown Rx tablet vomiting #20 tabs oxycodone-acetaminophen 5 mg-325 1 tab PO Q6H PRN pain 3 days #12 05/10/24 Unknown Rx mg tablet (Percocet) tabs Allergy/AdvReac Type Severity Reaction Status Date / Time Environmental Allergies: Allergy Intermediate Rash Verified 05/09/24 23:34 Uncoded pseudoephedrine AdvReac Other Verified 05/09/24 23:34 silicone AdvReac Hives Verified 05/09/24 23:34 Family History Father , 60 Diabetes Myocardial infarction Mother COPD (chronic obstructive pulmonary disease) Grandfather Leukemia Social History Smoking Status: Never smoker second hand exposure: No alcohol intake: never substance use type: does not use caffeine: Yes Type: coffee ROS ROS ED ROS Narrative Constitutional: Denies any fevers, chills, headaches, lightness, dizziness Eyes: Denies change in vision double vision blurry vision Cardiovascular: Denies chest pain Respiratory: Denies coughing wheezing shortness of breath Abdomen: Denies abdominal pain nausea vomit diarrhea Neurological: Patient states that she has chronic numbness and tingling in her right ring and pinky finger which she is being worked up with Dr. Rizo on and has a EMG scheduled states that this is not new Musculoskeletal: Complains of right elbow pain as noted above Skin: Complains of bruising noted to her arm from where the cow kicked her EXAM Physical Exam Narrative Exam Narrative: General: Patient lying in bed did appear to be uncomfortable secondary to her right elbow pain Head: Atraumatic, normocephalic Eyes: PERRL bilaterally, EOMI bilaterally, no conjunctival injection noted Neck: Soft, supple, trachea midline Cardiovascular: Regular rate and rhythm Musculoskeletal: Patient has tenderness with palpation of the proximal right forearm and right distal humerus ecchymosis noted dorsally, chronic bursitis noted in the right posterior elbow Extremities: Radial pulses +2/4 in the bilateral upper extremities, +5/5 strength noted in the left upper extremity, +4/5 strength noted in the right upper extremity secondary to pain Neurological: Patient following commands knew that she was at [facility] years 2023, sensation grossly intact in the median, ulnar and radial nerve distributions bilaterally states that she chronically has some decreased sensation in her ring and pinky finger on the right side this is not new for her as noted above Skin: Warm, dry, patient does have some bruising noted on the dorsal aspect of her right forearm Const Vital Signs: 05/09/24 23:33 Temperature 98.4 F Temperature Source Oral Pulse Rate 98 Respiratory Rate 16 Blood Pressure 129/68 H Blood Pressure Mean 88 Pulse Ox 99 Oxygen Delivery Method Room Air MDM MDM MDM Narrative Medical decision making narrative: Patient is a 38-year-old female who presented to the emergency department with a chief complaint of right forearm pain after being kicked by cow earlier this bonnie denise. Patient will have a workup performed here on the differential diagnose clues but not limited to forearm fracture, distal humerus fracture, joint effusion. Once workup is obtained reviewed she will be reevaluated. Patient be given Percocet and Zofran . Patient's x-ray of her elbow was reviewed by myself and by radiology showed soft tissue swelling involving the subcutaneous tissue posterior to the triceps tendon no fracture noted. Did discuss results with the patient that she was given a shot of Norflex as she states that she feels that her muscles are spasming. She was advised to follow-up with Dr. Rizo in the outpatient setting and return with worsening symptoms or other concerns. She was advised to use Tylenol ibuprofen for mild to moderate pain and use Percocet and Zofran for severe pain. Patient is requesting sling for comfort. This was ordered. She is encouraged to also follow-up the primary care physician outpatient setting. She is agreeable this plan as well as family bedside all question concerns answered she was discharged home in stable condition. Discharge Plan Triage Chief Complaint: Upper Extremity Injury ED Provider: Agapito Lao Dx/Rx/DC Orders Clinical Impression: Elbow pain, right Prescriptions: New oxycodone-acetaminophen [Percocet] 5-325 mg tablet 1 tab PO Q6H PRN (Reason: pain) 3 Days Qty: 12 0RF ondansetron 4 mg tablet,disintegrating 4 mg PO Q6H PRN (Reason: nausea and vomiting) Qty: 20 0RF No Action topiramate 25 mg tablet 50 mg PO DAILY doxycycline hyclate 100 mg capsule 100 mg PO BID 10 Days Qty: 20 0RF benzonatate 200 mg capsule 200 mg PO TID PRN (Reason: cough) Qty: 30 0RF Primary Care Provider: Eliot Smith NP Referrals: Eliot Smith [employer]EMAN, [employer]-C [Primary Care Provider] - Activity Restrictions/Additional Instructions: Follow-up with Dr. Rizo in the outpatient setting. Ice, use Tylenol and ibuprofen [id number] for mild to moderate pain and use Percocet and Zofran for severe pain. Return with worsening symptoms or any other concerns Print Language: German Disposition Disposition: Home, Self Care
[2024-05-10] MEDS: Ondansetron ODT 4 MG Tablet PO (00:21)
[2024-05-10] MEDS: HYDROcodone Bitartrate/Apap 5/325 Tablet PO (00:21)
[2024-05-10] MEDS: Orphenadrine 60 MG/2 ML Ampul 30 MG IM (00:51)
[2024-05-10 00:57] VITALS: BP 112/78; PULSE 82; RESP 16; TEMP 36.7; O2SAT 100
== END 2024-05-10 01:06 | disposition home or self-care (01) ==
PROVIDERS: Emergency Provider Emergency Medicine; PCP Nurse Practitioner Primary Care; Visit Provider Emergency Medicine
DX: M25.521 Pain in right elbow (principal)
CPT/HCPCS: 73080; 96372; 99284